=== PATIENT | female | born 1965 | race Caucasian/White ===

== ENCOUNTER 2021-10-23 09:07 | Emergency (ER) | payer OTHER, SELFPAY ==
[2021-10-23 09:10] VITALS: BP 115/68; PULSE 78; RESP 16; TEMP 36.9; O2SAT 100; BMI 22.4
--- NOTE | 2021-10-23 09:55 | ED_ITS ---
HPI - Dental/Oral General Chief complaint: Dental/Oral Stated complaint: dental issue Time Seen by Provider: 10/23/21 09:14 Source: patient Mode of arrival: ambulatory Limitations: no limitations History of Present Illness HPI Narrative: 56-year-old female with a history of multiple medication allergies here with complaints of dental pain and swelling since evening. Patient tells me that she has had some crowns that were not applied correctly several years ago and she is working on trying to get them replaced. On night 1 of her crowns fell off on her left lower to and since then she has had pain and swelling to the tooth. She plans on calling her dentist tomorrow. She is here today as she is concerned that the site might be infected and she may need some antibiotics. She is concerned that she has multiple antibiotic allergies and is unclear which medication she can take. She denies any fevers, chills, nasal congestion or rhinorrhea, sore throat or ear pain. Related Data Home Medications Medication Instructions Recorded Confirmed vilazodone 40 mg tablet (Viibryd) 40 mg PO DAILY 12/06/20 02/16/21 acetaminophen 650 mg mg PO 03/04/21 tablet,extended release ascorbic acid (vitamin C) 1,000 mg 500 mg PO DAILY 03/04/21 03/04/21 tablet (Vitamin C) cholecalciferol (vitamin D3) 50 50 mcg PO DAILY 03/04/21 03/04/21 mcg (2,000 unit) tablet (Vitamin D3) docosahexaenoic acid 300 mg capsule mg PO 03/04/21 03/04/21 Previous Rx's Medication Instructions Recorded spironolactone 100 mg tablet 100 mg PO DAILY #30 tab 12/06/20 topiramate 100 mg tablet 100 mg PO BEDTIME #30 tab 12/06/20 Lyrica 225 mg capsule (pregabalin) 225 mg PO BID 30 Days #60 cap NS 05/18/21 albuterol sulfate 90 mcg/actuation 2 puff INHALATION Q4-6H PRN 30 05/18/21 aerosol inhaler (Ventolin HFA) Days #8.5 g topiramate 200 mg tablet 200 mg PO BID #180 tab 06/07/21 lansoprazole 30 mg capsule,delayed 30 mg PO BID #90 cap 07/06/21 release nitroglycerin 0.3 mg sublingual 0.3 mg SUBLINGUAL Q5M PRN 30 Days 09/13/21 tablet #30 tab oxycodone 5 mg tablet 5 mg PO Q8H PRN 30 Days #90 tab 10/06/21 ibuprofen 600 mg tablet 600 mg PO Q8H PRN #30 tab 10/23/21 Allergies Allergy/AdvReac Type Severity Reaction Status Date / Time aluminum [Drysol] Allergy Unknown Unknown Verified 05/18/21 10:39 ciprofloxacin [Cipro] Allergy Unknown Unknown Verified 05/18/21 10:39 Clindamycin HCl Allergy Unknown Unknown Verified 05/18/21 10:39 codeine Allergy Unknown Unknown Verified 05/18/21 10:39 diazepam [Valium] Allergy Unknown Unknown Verified 05/18/21 10:39 doxycycline Allergy Unknown Unknown Verified 05/18/21 10:39 hydromorphone [Dilaudid] Allergy Unknown Unknown Verified 05/18/21 10:39 metronidazole [Flagyl] Allergy Unknown Unknown Verified 05/18/21 10:39 milnacipran [Savella] Allergy Unknown Unknown Verified 05/18/21 10:39 nitrofurantoin [Macrodantin] Allergy Unknown Unknown Verified 05/18/21 10:39 penicillin V Allergy Unknown Unknown Verified 05/18/21 10:39 Sulfa (Sulfonamide Allergy Unknown Unknown Verified 05/18/21 10:39 Antibiotics) sumatriptan [Imitrex] Allergy Unknown Unknown Verified 05/18/21 10:39 azithromycin Allergy Unknown Verified 05/18/21 10:39 gabapentin Allergy Unknown Verified 05/18/21 10:39 sulfamethoxazole Allergy Unknown Verified 05/18/21 10:39 [From Bactrim] trimethoprim [From Bactrim] Allergy Unknown Verified 05/18/21 10:39 [place] Allergy Unknown Unknown Uncoded 03/04/21 13:40 Codeine Sulfate Allergy Unknown Unknown Uncoded 03/04/21 13:40 Imitrex Allergy Unknown Unknown Uncoded 03/04/21 13:40 Penicillin Allergy Unknown Unknown Uncoded 03/04/21 13:40 Vibramycin Allergy Unknown Unknown Uncoded 03/04/21 13:40 Victyl Structures Allergy Unknown Unknown Uncoded 03/04/21 13:40 Xray Dye Allergy Unknown Unknown Uncoded 03/04/21 13:40 Review of Systems Review of Systems: Yes all other systems are reviewed and are negative Constitutional: Constitutional: Reports no additional constitutional complaints, Denies body ache(s), Denies chills, Denies fever(s), Denies headache(s) and Denies weakness Eyes: Eyes: Reports no additional eye complaints and Denies change in vision ENT: Reports system reviewed and no additional complaints, except as documented, Reports dental pain, Denies dizziness, Denies headache(s), Denies n armando congestion, Denies nasal discharge and Denies neck pain Cardiovascular: Cardiovascular: Reports no additional cardiovascular complaints, Denies chest pain, Denies leg edema and Denies dyspnea Respiratory: Respiratory: Reports no additional respiratory complaints, Denies cough and Denies dyspnea Gastrointestinal: Gastrointestinal: Reports no additional gastrointestinal complaints, Denies abdominal pain, Denies diarrhea, Denies nausea and Denies vomiting Genitourinary: Genitourinary: Reports no additional female genitourinary complaints and Denies urinary incontinence Musculoskeletal: Musculoskeletal: Reports no additional musculoskeletal complaints, Denies back pain, Denies arthralgias, Denies joint swelling, Denies neck pain, Denies numbness and Denies tingling Integumentary/Breasts: Skin/Breast: Reports system reviewed and no additional complaints, except as docu and Denies rash Neurologic: Reports system reviewed and no additional complaints, except as documented, Denies Abnormal speech present, Denies dizziness, Denies hea dache(s), Denies numbness, Denies tingling and Denies weakness PMFSH Past Medical History Attestation statement: The following information was validated with the patient. Source: old records reviewed and nursing notes reviewed Medical History Arthritis Asthma Costochondritis CPRS 1 (complex regional pain syndrome I) of upper limb Dysphagia Fibromyalgia GERD (gastroesophageal reflux disease) Multiple sclerosis Nerve damage Trapezium fracture Surgical History H/O: hysterectomy Total knee replacement status Family History Family History Father Pancreatic cancer Maternal Aunt Diabetes Breast cancer Sister Non-Hodgkin lymphoma Acute Crohn's disease Mother High cholesterol Hypertension Social History Social History Housing: Apartment Alcohol intake: former Patient Tobacco Use Status: Never used Tobacco Advance Directives: No Advance Directives Information Provided: No Current occupational status: disabled Physical Exam Vital Signs: Vital Signs: Last Vital Signs Temp 98.4 F 10/23/21 09:10 Pulse 78 10/23/21 09:10 Resp 16 10/23/21 09:10 BP 115/68 10/23/21 09:10 Pulse Ox 100 10/23/21 09:10 Body Mass Index 22.4 Const: General: cooperative, healthy appearing, comfortable and no acute distress Orientation/consciousness: patient oriented x3 Limitations: no limitations HENMT: Head: Yes normal to inspection Ears: hearing grossly normal bilaterally and TM's normal bilaterally General nose exam: Normal external nose present Face and sinus: Yes normal facial exam Mouth: Normal oral and palatal mucosa present Teeth image: 1. [place] is absent. The tooth is broken and the root is exposed. There is local erythema and tenderness with mild swelling. There is no fluctuance or induration. Crowns noted on other front teeth, most molars are absent Throat: Yes posterior oropharynx normal and Yes other ( no trismus) Eyes: General: appearance normal, both eyes and all related structures Pupils: Equal, round and reactive pupils present Neck: Neck: Yes normal visual inspection, Yes full ROM and Yes no lymphadenopathy Chest: Chest palpation & inspection: normal inspection of the chest Resp: Effort & Inspection: normal respiratory effort Cardio: Peripheral pulses: Peripheral pulses 2+ throughout GI: Inspection: Yes normal to inspection Back/Spine/Pelvis: Thoracic/Lumbar Spine: thoracic and lumbar spine normal to inspection Skin: General skin exam: no rashes or lesions noted Neuro: General: patient oriented x3 and moves all extremities Cranial nerves: Yes Equal, round and reactive pupils present Cognition (Neuro): norm al cognition Speech: No Abnormal speech present Gait exam (Neuro): Normal gait present Extrem: General: Yes normal to inspection Course Course Course Narrative: 56-year-old female here with complaints of dental pain after her crown fell off several days ago. She does have some local swelling, erythe ma and tenderness around the exposed nerve root. There is no fluctuance or induration or abscess present. The infection is mild and local to the site. The patient has multiple allergies to medications including most antibiotics. She tells me she did have a dose of IV antibiotics in the past that she was able to tolerate but she does not know the name of the medication. She also does not know most of the allergy symptoms to these antibiotics. She does know that penicillin causes her throat to close so all penicillins, cephalosporins not an option. Clindamycin causes GI upset. The case was discussed with Dr. Larry. As the patient only has common side effects to clindamycin and not a true allergy we discussed giving a dose of IV clindamycin here today and having the patient follow-up tomorrow with her dental office. This was discussed with the patient and she was agreeable with this. 1100- patient tolerated 600 mg of IV clindamycin with no issues. Plan to discharge her home to follow-up with her outpatient dental providers. Reviewed worrisome signs and symptoms and when to return to the emergency department. Comfortable discharge home. MDM - Dental/Oral Medical Records Attestation: I reviewed the patient's medical records. Lab Data Attestation: I reviewed the patient's lab results. Discharge Plan Discharge Clinical Impression: Toothache Patient Disposition: Home, Self-Care Instructions: Toothache (ED) Additional Instructions: You received 1 dose of IV clindamycin for the local infection around your tooth follow-up with your dental provider continue your home medication salt water gargles soft foods at home Prescriptions: New ibuprofen 600 mg tablet 600 mg PO Q8H PRN (Reason: pain) Qty: 30 RF: 0 No Action topiramate 200 mg tablet 200 mg PO BID Qty: 180 RF: 2 lansoprazole 30 mg capsule,delayed release(DR/EC) 30 mg PO BID Qty: 90 RF: 2 nitroglycerin 0.3 mg tablet, sublingual 0.3 mg SUBLINGUAL Q5M PRN (Reason: dysphagia) 30 Days Qty: 30 RF: 2 oxycodone 5 mg tablet 5 mg PO Q8H PRN (Reason: pain) 30 Days Qty: 90 RF: 0 ascorbic acid (vitamin C) [Vitamin C] 1,000 mg Tablet 500 mg PO DAILY RF: 0 acetaminophen [Tylenol Arthritis] 650 mg Tablet Extended Release PO RF: 0 cholecalciferol (vitamin D3) [Vitamin D3] 50 mcg (2,000 unit) Tablet 50 mcg PO DAILY RF: 0 DHA 300 mg Capsule PO RF: 0 topiramate 100 mg tablet 100 mg PO BEDTIME Qty: 30 RF: 0 spironolactone 100 mg tablet 100 mg PO DAILY Qty: 30 RF: 0 Viibryd 40 mg tablet 40 mg PO DAILY RF: 0 pregabalin [Lyrica] 225 mg capsule 225 mg PO BID 30 Days Qty: 60 RF: 3 albuterol sulfate [Ventolin HFA] 90 mcg/actuation HFA aerosol inhaler 2 puff INHALATION Q4-6H PRN (Reason: shortness of breath or wheezing) 30 Days Qty: 8.5 RF: 6
[2021-10-23] MEDS: Clindamycin Phosphate/D5W 600 MG/50 ML PIGGYBACK 100 MG IV (10:07)
--- NOTE | 2021-10-23 10:58 | PC.NURSE ---
NO NAUSEA OR VOMITING, NO NEGATIVE SIDE EFFECTS FROM ANTIBIOTICS AT THIS TIME.
== END 2021-10-23 11:13 | disposition home or self-care (01) ==
PROVIDERS: Emergency Provider Emergency Medicine; PCP Family Medicine
DX: K08.89 Other specified disorders of teeth and supporting structures (principal)
CPT/HCPCS: 96365; 99284

== ENCOUNTER 2021-10-31 10:29 | Emergency (ER) | payer OTHER, SELFPAY ==
[2021-10-31 11:24] VITALS: BP 112/66; PULSE 70; RESP 18; TEMP 36.4; O2SAT 99; BMI 22.4
--- NOTE | 2021-10-31 12:17 | ED_ITS ---
HPI - Dental/Oral General Chief complaint: Dental/Oral Stated complaint: Dental issue-antibiotic needs to be administered Time Seen by Provider: 10/31/21 12:16 Source: patient Mode of arrival: ambulatory Limitations: no limitations History of Present Illness HPI Narrative: recent crown fell off and patient with increased pain. Patient currently on IV abx for clindamycin. Patient here for IV abx dose because she states she cant take oral abx. MD Complaint: tooth pain Onset (ago): week(s) Duration: constant Severity: moderate Context: history of dental caries Related Data Home Medications Medication Instructions Recorded Confirmed vilazodone 40 mg tablet (Viibryd) 40 mg PO DAILY 12/06/20 02/16/21 acetaminophen 650 mg mg PO 03/04/21 tablet,extended release ascorbic acid (vitamin C) 1,000 mg 500 mg PO DAILY 03/04/21 03/04/21 tablet (Vitamin C) cholecalciferol (vitamin D3) 50 50 mcg PO DAILY 03/04/21 03/04/21 mcg (2,000 unit) tablet (Vitamin D3) docosahexaenoic acid 300 mg capsule mg PO 03/04/21 03/04/21 Previous Rx's Medication Instructions Recorded spironolactone 100 mg tablet 100 mg PO DAILY #30 tab 12/06/20 topiramate 100 mg tablet 100 mg PO BEDTIME #30 tab 12/06/20 Lyrica 225 mg capsule (pregabalin) 225 mg PO BID 30 Days #60 cap NS 05/18/21 albuterol sulfate 90 mcg/actuation 2 puff INHALATION Q4-6H PRN 30 05/18/21 aerosol inhaler (Ventolin HFA) Days #8.5 g topiramate 200 mg tablet 200 mg PO BID #180 tab 06/07/21 lansoprazole 30 mg capsule,delayed 30 mg PO BID #90 cap 07/06/21 release nitroglycerin 0.3 mg sublingual 0.3 mg SUBLINGUAL Q5M PRN 30 Days 09/13/21 tablet #30 tab oxycodone 5 mg tablet 5 mg PO Q8H PRN 30 Days #90 tab 10/06/21 ibuprofen 600 mg tablet 600 mg PO Q8H PRN #30 tab 10/23/21 Allergies Allergy/AdvReac Type Severity Reaction Status Date / Time aluminum [Drysol] Allergy Unknown Unknown Verified 05/18/21 10:39 ciprofloxacin [Cipro] Allergy Unknown Unknown Verified 05/18/21 10:39 Clindamycin HCl Allergy Unknown Unknown Verified 05/18/21 10:39 codeine Allergy Unknown Unknown Verified 05/18/21 10:39 diazepam [Valium] Allergy Unknown Unknown Verified 05/18/21 10:39 doxycycline Allergy Unknown Unknown Verified 05/18/21 10:39 hydromorphone [Dilaudid] Allergy Unknown Unknown Verified 05/18/21 10:39 metronidazole [Flagyl] Allergy Unknown Unknown Verified 05/18/21 10:39 milnacipran [Savella] Allergy Unknown Unknown Verified 05/18/21 10:39 nitrofurantoin [Macrodantin] Allergy Unknown Unknown Verified 05/18/21 10:39 penicillin V Allergy Unknown Unknown Verified 05/18/21 10:39 Sulfa (Sulfonamide Allergy Unknown Unknown Verified 05/18/21 10:39 Antibiotics) sumatriptan [Imitrex] Allergy Unknown Unknown Verified 05/18/21 10:39 azithromycin Allergy Unknown Verified 05/18/21 10:39 gabapentin Allergy Unknown Verified 05/18/21 10:39 sulfamethoxazole Allergy Unknown Verified 05/18/21 10:39 [From Bactrim] trimethoprim [From Bactrim] Allergy Unknown Verified 05/18/21 10:39 [place] Allergy Unknown Unknown Uncoded 03/04/21 13:40 Codeine Sulfate Allergy Unknown Unknown Uncoded 03/04/21 13:40 Imitrex Allergy Unknown Unknown Uncoded 03/04/21 13:40 Penicillin Allergy Unknown Unknown Uncoded 03/04/21 13:40 Vibramycin Allergy Unknown Unknown Uncoded 03/04/21 13:40 Victyl Structures Allergy Unknown Unknown Uncoded 03/04/21 13:40 Xray Dye Allergy Unknown Unknown Uncoded 03/04/21 13:40 Review of Systems Constitutional: Constitutional: Reports no additional constitutional complaints Eyes: Eyes: Reports no additional eye complaints ENT: Denies dizziness Cardiovascular: Cardiovascular: Reports no additional cardiovascular complaints Respiratory: Respiratory: Reports as per HPI Gastrointestinal: Gastrointestinal: Reports no additional gastrointestinal complaints Genitourinary: Genitourinary: Reports no additional female genitourinary complaints Musculoskeletal: Musculoskeletal: Reports no additional musculoskeletal complaints Integumentary/Breasts: Skin/Breast: Denies rash Neurologic: Reports system reviewed and no additional complaints, except as documented, Denies dizziness and Denies Sensory deficit (Neuro) Psychiatric: Psychiatric: Denies anxiety [facility] Past Medical History Medical History Arthritis Asthma Costochondritis CPRS 1 (complex regional pain syndrome I) of upper limb Dysphagia Fibromyalgia GERD (gastroesophageal reflux disease) Multiple sclerosis Nerve damage Trapezium fracture Surgical History H/O: hysterectomy Total knee replacement status Family History Family History Father Pancreatic cancer Maternal Aunt Diabetes Breast cancer Sister Non-Hodgkin lymphoma Acute Crohn's disease Mother High cholesterol Hypertension Social History Social History Housing: Apartment Alcohol intake: former Patient Tobacco Use Status: Never used Tobacco Advance Directives: No Advance Directives Information Provided: No Current occupational status: disabled Physical Exam Vital Signs: Vital Signs: Last Vital Signs Temp 97.5 F 10/31/21 11:24 Pulse 70 10/31/21 11:24 Resp 18 10/31/21 11:24 BP 112/66 10/31/21 11:24 Pulse Ox 99 10/31/21 11:24 BMI result Body Mass Index 22.4 Const: General: healthy appearing Nutritional Appearance: average body habitus Orientation/consciousness: oriented to person and patient oriented x3 Limitations: no limitations HENMT: Other: left lower premolar with decay to gum line, severe multiple areas of periodontal disease Head: Yes normal to inspection Ears: external ears normal General nose exam: Normal external nose present Throat: Yes posterior oropharynx normal Eyes: General: appearance normal, both eyes and all related structures Neck: Other: supple Neck: Yes normal visual inspection Chest: Chest palpation & inspection: normal inspection of the chest Resp: Auscultation: clear to auscultation bilaterally Cardio: Jugular venous distension: no JVD Rate: regular rate Rhythm: regular rhythm Heart sounds: S1 normal heart sound present and S2 normal heart sound present GI: Inspection: Yes normal to inspection Palpation (GI): Soft to palpation, nontender and No hepatosplenomegaly present Auscultation: normal bowel sounds : General: Yes no CVA tenderness Back/Spine/Pelvis: Back: no CVA tenderness Skin: General skin exam: no rashes or lesions noted Neuro: General: oriented to person and patient oriented x3 Cranial nerves: Yes CN's II-XII intact bilaterally Motor exam (neuro): 5/5 motor strength present throughout Sensory Exam: No Sensory deficit (Neuro) Extrem: General: Yes normal to inspection Psych: Appearance: grossly normal Course Reevaluation(s) Reevaluation #1: Patient sent in by oral surgeon for one more dose of IV clindamycin before surgery tomorrow Time: 12:28 Discharge Plan Discharge Clinical Impression: Toothache, Dental caries, Fracture of tooth Patient Disposition: Home, Self-Care Instructions: Toothache (ED) Prescriptions: No Action topiramate 200 mg tablet 200 mg PO BID Qty: 180 RF: 2 lansoprazole 30 mg capsule,delayed release(DR/EC) 30 mg PO BID Qty: 90 RF: 2 nitroglycerin 0.3 mg tablet, sublingual 0.3 mg SUBLINGUAL Q5M PRN (Reason: dysphagia) 30 Days Qty: 30 RF: 2 oxycodone 5 mg tablet 5 mg PO Q8H PRN (Reason: pain) 30 Days Qty: 90 RF: 0 ascorbic acid (vitamin C) [Vitamin C] 1,000 mg Tablet 500 mg PO DAILY RF: 0 acetaminophen [Tylenol Arthritis] 650 mg Tablet Extended Release PO RF: 0 cholecalciferol (vitamin D3) [Vitamin D3] 50 mcg (2,000 unit) Tablet 50 mcg PO DAILY RF: 0 DHA 300 mg Capsule PO RF: 0 ibuprofen 600 mg tablet 600 mg PO Q8H PRN (Reason: pain) Qty: 30 RF: 0 topiramate 100 mg tablet 100 mg PO BEDTIME Qty: 30 RF: 0 spironolactone 100 mg tablet 100 mg PO DAILY Qty: 30 RF: 0 Viibryd 40 mg tablet 40 mg PO DAILY RF: 0 pregabalin [Lyrica] 225 mg capsule 225 mg PO BID 30 Days Qty: 60 RF: 3 albuterol sulfate [Ventolin HFA] 90 mcg/actuation HFA aerosol inhaler 2 puff INHALATION Q4-6H PRN (Reason: shortness of breath or wheezing) 30 Days Qty: 8.5 RF: 6 Referrals: Wiliam Jones MD [Primary Care Provider] - 2 days
[2021-10-31] MEDS: Clindamycin Phosphate/D5W 600 MG/50 ML PIGGYBACK 100 MG IV (12:48)
== END 2021-10-31 13:33 | disposition home or self-care (01) ==
PROVIDERS: Emergency Provider Emergency Medicine; PCP Family Medicine
DX: K08.89 Other specified disorders of teeth and supporting structures (principal); K02.9 Dental caries, unspecified; G35 Multiple sclerosis
CPT/HCPCS: 96365; 99284

== ENCOUNTER 2021-12-21 07:16 | Emergency (ER) | payer OTHER, SELFPAY ==
[2021-12-21 07:21] VITALS: BP 118/61; PULSE 82; RESP 16; TEMP 37.1; O2SAT 98; BMI 22.4
--- NOTE | 2021-12-21 08:09 | ED_ITS ---
HPI - Dental/Oral General Chief complaint: Dental/Oral Stated complaint: abscess Time Seen by Provider: 12/21/21 07:19 Source: patient Limitations: no limitations History of Present Illness HPI Narrative: This is a 56-year-old female has a history of extensive dental work, recently had a lot of crowns were placed, also had some teeth pulled, crowns were replaced about 5 weeks ago. The patient was due to have permanent crowned placed to replace the temporary once yesterday but the dentist canceled on her. The patient notes that she has had some pain between her to upper front teeth, greater incisors and that she has noted drainage of blood and pus. Patient says she does have an appointment to see the dentist tomorrow. Patient notes that she has allergies to multiple antibiotics and in the past has had to receive an IV antibiotic which she believes was clindamycin (though she is allergic to the oral form). The patient denies any headache or fever. She notes that pain is worse with eating. Related Data Home Medications Medication Instructions Recorded Confirmed vilazodone 40 mg tablet (Viibryd) 40 mg PO DAILY 12/06/20 02/16/21 acetaminophen 650 mg mg PO 03/04/21 tablet,extended release ascorbic acid (vitamin C) 1,000 mg 500 mg PO DAILY 03/04/21 03/04/21 tablet (Vitamin C) cholecalciferol (vitamin D3) 50 50 mcg PO DAILY 03/04/21 03/04/21 mcg (2,000 unit) tablet (Vitamin D3) docosahexaenoic acid 300 mg capsule mg PO 03/04/21 03/04/21 Previous Rx's Medication Instructions Recorded spironolactone 100 mg tablet 100 mg PO DAILY #30 tab 12/06/20 topiramate 100 mg tablet 100 mg PO BEDTIME #30 tab 12/06/20 albuterol sulfate 90 mcg/actuation 2 puff INHALATION Q4-6H PRN 30 05/18/21 aerosol inhaler (Ventolin HFA) Days #8.5 g topiramate 200 mg tablet 200 mg PO BID #180 tab 06/07/21 lansoprazole 30 mg capsule,delayed 30 mg PO BID #90 cap 07/06/21 release nitroglycerin 0.3 mg sublingual 0.3 mg SUBLINGUAL Q5M PRN 30 Days 09/13/21 tablet #30 tab ibuprofen 600 mg tablet 600 mg PO Q8H PRN #30 tab 10/23/21 Lyrica 225 mg capsule (pregabalin) 225 mg PO BID 30 Days #60 cap NS 11/07/21 oxycodone 5 mg tablet 5 mg PO Q8H PRN 30 Days #90 tab 12/01/21 food supplemt, lactose-reduced 1 ea PO BID 30 Days #86084 ml 12/09/21 (Ensure) Allergies Allergy/AdvReac Type Severity Reaction Status Date / Time aluminum [Drysol] Allergy Unknown Unknown Verified 05/18/21 10:39 ciprofloxacin [Cipro] Allergy Unknown Unknown Verified 05/18/21 10:39 Clindamycin HCl Allergy Unknown Unknown Verified 05/18/21 10:39 codeine Allergy Unknown Unknown Verified 05/18/21 10:39 diazepam [Valium] Allergy Unknown Unknown Verified 05/18/21 10:39 doxycycline Allergy Unknown Unknown Verified 05/18/21 10:39 hydromorphone [Dilaudid] Allergy Unknown Unknown Verified 05/18/21 10:39 metronidazole [Flagyl] Allergy Unknown Unknown Verified 05/18/21 10:39 milnacipran [Savella] Allergy Unknown Unknown Verified 05/18/21 10:39 nitrofurantoin Allergy Unknown Unknown Verified 05/18/21 10:39 [Macrodantin] penicillin V Allergy Unknown Unknown Verified 05/18/21 10:39 Sulfa (Sulfonamide Allergy Unknown Unknown Verified 05/18/21 10:39 Antibiotics) sumatriptan [Imitrex] Allergy Unknown Unknown Verified 05/18/21 10:39 azithromycin Allergy Unknown Verified 05/18/21 10:39 gabapentin Allergy Unknown Verified 05/18/21 10:39 sulfamethoxazole Allergy Unknown Verified 05/18/21 10:39 [From Bactrim] trimethoprim [From Allergy Unknown Verified 05/18/21 10:39 Bactrim] [place] Allergy Unknown Unknown Uncoded 03/04/21 13:40 Codeine Sulfate Allergy Unknown Unknown Uncoded 03/04/21 13:40 Imitrex Allergy Unknown Unknown Uncoded 03/04/21 13:40 Penicillin Allergy Unknown Unknown Uncoded 03/04/21 13:40 Vibramycin Allergy Unknown Unknown Uncoded 03/04/21 13:40 Victyl Structures Allergy Unknown Unknown Uncoded 03/04/21 13:40 Xray Dye Allergy Unknown Unknown Uncoded 03/04/21 13:40 Review of Systems Verdana 4l Constitutional: Verdana 4d Constitutional: Verdana 4d Verdana 4d Reports as per HPI, Denies fever(s) and Denies headache(s) Verdana 4l Eyes: Verdana 4d Verdana 4d Eyes: Verdana 4d Reports no additional eye complaints Verdana 4l ENT: Verdana 4d Denies headache(s) Verdana 4d Comments: Verdana 4d Verdana 4d Gum drainage Verdana 4d Verdana 4l Cardiovascular: Verdana 4d Cardiovascular: Verdana 4d Verdana 4d Reports no additional cardiovascular complaints Verdana 4l Respiratory: Verdana 4d Verdana 4d Respiratory: Verdana 4d Reports no additional respiratory complaints Verdana 4l Neurologic: Verdana 4d Denies headache(s) [facility] Past Medical History Medical History Arthritis Asthma Costochondritis CPRS 1 (complex regional pain syndrome I) of upper limb Dysphagia Fibromyalgia GERD (gastroesophageal reflux disease) Multiple sclerosis Nerve damage Trapezium fracture Surgical History H/O: hysterectomy Total knee replacement status Family History Family History Father Pancreatic cancer Maternal Aunt Diabetes Breast cancer Sister Non-Hodgkin lymphoma Acute Crohn's disease Mother High cholesterol Hypertension Social History Social History Housing: Apartment Alcohol intake: former Patient Tobacco Use Status: Never used Tobacco Advance Directives: No Advance Directives Information Provided: Yes Patient : No Current occupational status: disabled Physical Exam Verdana 4l Vital Signs: Verdana 4d Verdana 4d Vital Signs: Verdana 4d Verdana 4Bd Last Vital Signs Verdana 4d [employer] New 4d [employer] 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 Area the patient's pain between the upper to greater incisors, has perhaps mild erythema but no fluctuance, no drainage, no disruption of the mucosa which would suggest a place that had been draining. MDM - Dental/Oral MDM Narrative Medical decision making narrative: Patient reports drainage from the gum between her upper greater incisors. On exam the area appears normal except perhaps mild erythema at the apex of the gum between teeth. No fluctuance. Given that the patient has dental follow-up tomorrow, and given her multiple allergies to antibiotics, do not believe antibiotics are indicated. Warm rinses, Tylenol and ibuprofen are advised Discharge Plan Discharge Clinical Impression: Gum inflammation Patient Disposition: Home, Self-Care Instructions: Periodontal Disease (DC) Additional Instructions: Follow-up with a dentist tomorrow scheduled. Use acetaminophen or ibuprofen for pain. Rinse the sore area of her mouth with warm water for 10 minutes every 3-4 hours while awake. You can gently use her fingers to try to express out any pus, so I did not see any fluctuant or pus filled area at this time. Prescriptions: No Action topiramate 200 mg tablet 200 mg PO BID Qty: 180 2RF lansoprazole 30 mg capsule,delayed release(DR/EC) 30 mg PO BID Qty: 90 2RF nitroglycerin 0.3 mg tablet, sublingual 0.3 mg SUBLINGUAL Q5M PRN (Reason: dysphagia) 30 Days Qty: 30 2RF pregabalin [Lyrica] 225 mg capsule 225 mg PO BID 30 Days Qty: 60 3RF oxycodone 5 mg tablet 5 mg PO Q8H PRN (Reason: pain) 30 Days Qty: 90 0RF Rx Instructions: [employer] verified. Partial refill upon request. Ensure Liquid 1 ea PO BID 30 Days Qty: [id number] 3RF Rx Instructions: Original [place] ascorbic acid (vitamin C) [Vitamin C] 1,000 mg Tablet 500 mg PO DAILY 0RF acetaminophen [Tylenol Arthritis] 650 mg Tablet Extended Release PO 0RF cholecalciferol (vitamin D3) [Vitamin D3] 50 mcg (2,000 unit) Tablet 50 mcg PO DAILY 0RF DHA 300 mg Capsule PO 0RF ibuprofen 600 mg tablet 600 mg PO Q8H PRN (Reason: pain) Qty: 30 0RF topiramate 100 mg tablet 100 mg PO BEDTIME Qty: 30 0RF spironolactone 100 mg tablet 100 mg PO DAILY Qty: 30 0RF Viibryd 40 mg tablet 40 mg PO DAILY 0RF Rx Instructions: must administer with a meal/food albuterol sulfate [Ventolin HFA] 90 mcg/actuation HFA aerosol inhaler 2 puff INHALATION Q4-6H PRN (Reason: shortness of breath or wheezing) 30 Days Qty: 8.5 6RF
--- NOTE | 2021-12-21 08:28 | PC.NURSE ---
PT EVALUATED BY PROVIDER. PT AWAKE, ALERT AND ORIENTED X 3. SKIN WARM AND DRY. RESP UNLABORED. DENIES N/V. AIRWAY PATENT. SPEAKING IN FULL SENTENCES. MANAGING SECRETIONS. NO PUS NOTED ON GUMLINE AT THIS TIME. PLAN IS FOR DC AND F/U WITH DENTIST. PT AGREEABLE TO PLAN
== END 2021-12-21 08:30 | disposition home or self-care (01) ==
PROVIDERS: Emergency Provider Emergency Medicine; PCP Family Medicine
DX: K05.10 Chronic gingivitis, plaque induced (principal)
CPT/HCPCS: 99283

== ENCOUNTER → 2022-01-26 09:27 | Outpatient (BNVA) | payer OTHER, SELFPAY | PROVIDERS: PCP Family Medicine; Visit Provider Internal Medicine Endocrinology, Diabetes & Metabolism | DX: M81.0 Age-related osteoporosis without current pathological fracture (principal) | CPT/HCPCS: 99202 ==

== ENCOUNTER 2022-06-26 07:28 | Outpatient (REF) | payer OTHER, SELFPAY ==
[2022-06-26 11:22] LABS: MANUAL DIFF FLAG NO
[2022-06-26 11:33] LABS: Basophils Percent Auto 0.4 % (0-2); Eosinophils Absolute Auto 0.1 X10*3/uL (0.0-0.4); Eosinophils Percent Auto 0.9 % (0-4); Hematocrit 41.2 % (37.0-47.0); Hemoglobin 13.1 g/dl (12.0-16.0); Imm Gran Abs Auto 0.02 X10*3/uL (0.00-0.03); Imm Gran Pct Auto 0.4 % (0.0-0.4); Lymphocytes Percent Auto 35.1 % (20-40); Mean Corpuscular HGB Conc 31.8 g/dl (31.0-35.0); Mean Corpuscular Hemoglobin 29.9 pg (27.0-33.0); Mean Corpuscular Volume 94.1 fL (80.0-98.0); Mean Platelet Volume 11.9 fL (9.4-12.3); Monocytes Absolute Auto 0.5 X10*3/uL (0.1-1.2); Monocytes Percent Auto 8.2 % (2-11); Neutrophils Absolute Auto 3.1 x10*3/uL (2.0-8.3); Platelet Count 182 X10*3/uL (160-400); Red Blood Count 4.38 X10*6/uL (4.20-5.50); Red Cell Distribution Width 13.2 % (11.0-16.0); White Blood Count 5.6 X10*3/uL (4.8-10.8)
[2022-06-26 11:57] LABS: Alanine Aminotransferase 23 U/L (0-31); Albumin Level 4.4 g/dL (3.5-5.0); Alkaline Phosphatase 55 U/L (39-117); Anion Gap 15 (12-20); Aspartate Amino Transferase 23 U/L (5-31); Bilirubin Total 0.5 mg/dL (0.0-1.0); Blood Urea Nitrogen 12 mg/dL (9-16); Carbon Dioxide 28 mmol/L (22-29); Chloride 104 mmol/L (96-108); Cholesterol 237 mg/dL; Estimated Glomerular Filt Rate > 60; Glucose Fasting 102 mg/dL (60-99); HDL Cholesterol 75 mg/dL; LDL Cholesterol Calculated 147 mg/dl; Potassium 4.3 mmol/L (3.3-5.1); Sodium 143 mmol/L (135-145); Total Protein 6.7 g/dL (6.5-8.0); Triglycerides 75 mg/dL
[2022-06-26 12:05] LABS: TSH reflex Free T4 1.25 uIU/mL (0.32-4.0)
== END 2022-06-26 07:29 | disposition home or self-care (01) ==
LOC: HO.WFDLDS 07:28
PROVIDERS: Visit Provider Family Medicine
DX: Z00.00 Encounter for general adult medical examination without abnormal findings (principal)
CPT/HCPCS: 36415; 80053; 80061; 84443; 85025

== ENCOUNTER 2022-09-20 12:49 | Outpatient (REF) | payer OTHER, SELFPAY ==
[2022-09-20 14:22] LABS: Appearance Urine Clear; Color Urine Yellow; Glucose Urine UA Negative (Negative); Leukocyte Esterase Urine Large (3+) (Negative); Nitrite Urine Negative (Negative); UMIC TRIGGER UA YES; Urine Blood Negative (Negative); Urine Ketones Negative (Negative); Urine Protein Negative (Neg-Trace)
[2022-09-20 14:33] LABS: Bacteria Urine Trace (None Seen); Hyaline Casts Urine 0-2 /LPF (0-2); RBC Urine 0-2 /HPF (0-2); WBC Urine 21-50 /HPF (0-5)
== END 2022-09-20 12:50 | disposition home or self-care (01) ==
LOC: HO.WFDLNP 12:49
PROVIDERS: Visit Provider Family Medicine
DX: Z00.00 Encounter for general adult medical examination without abnormal findings (principal); R73.01 Impaired fasting glucose
CPT/HCPCS: 81001; 81003

== ENCOUNTER → 2022-10-11 12:30 | Outpatient (BNVA) | payer OTHER, SELFPAY | PROVIDERS: PCP Family Medicine; Visit Provider Dietitian, Registered | DX: R63.5 Abnormal weight gain (principal); R73.01 Impaired fasting glucose; E78.00 Pure hypercholesterolemia, unspecified; Z71.3 Dietary counseling and surveillance | CPT/HCPCS: 97802 ==

== ENCOUNTER 2022-10-18 06:51 | Emergency (ER) | payer OTHER, SELFPAY ==
[2022-10-18 06:52] VITALS: BP 111/59; PULSE 79; RESP 18; TEMP 36.1; O2SAT 99; BMI 25.0
--- NOTE | 2022-10-18 07:06 | ED_ITS ---
HPI - Dental/Oral General Chief complaint: Dental/Oral Stated complaint: sent by dental office, possible infection Time Seen by Provider: 10/18/22 07:04 Source: patient Mode of arrival: ambulatory Limitations: no limitations History of Present Illness HPI Narrative: Patient here from dentist for IV clindamycin because she can not tolerate oral antibiotics. Xray showed infection down her lower jaw. She has a long history of dental problems. She is to go to [facility] – [place] after IV abx. Onset (ago): month(s) Duration: worsening Severity: mild Relieving factors: nothing Exacerbating factors: nothing Context: other (long history of dental infection) Treatment prior to arrival: none Related Data Home Medications Medication Instructions Recorded Confirmed vilazodone 40 mg tablet (Viibryd) 40 mg PO DAILY 12/06/20 05/16/22 cholecalciferol (vitamin D3) 50 50 mcg PO DAILY 03/04/21 05/16/22 mcg (2,000 unit) tablet (Vitamin D3) docosahexaenoic acid 300 mg capsule mg PO 03/04/21 05/16/22 acetaminophen 650 mg 650 mg PO ONCE PRN 01/26/22 05/16/22 tablet,extended release ascorbic acid (vitamin C) 1,000 mg 1 g PO DAILY 01/26/22 05/16/22 tablet (Vitamin C) Previous Rx's Medication Instructions Recorded albuterol sulfate 90 mcg/actuation 2 puff inhalation Q4-6H PRN 05/18/21 aerosol inhaler (Ventolin HFA) shortness of breath or wheezing 30 days #8.5 grams nitroglycerin 0.3 mg sublingual 0.3 mg sublingual Q5M PRN 09/13/21 tablet dysphagia 30 days #30 tabs lansoprazole 30 mg capsule,delayed 30 mg PO BID 90 days #180 caps 01/05/22 release naloxone 4 mg/actuation nasal 4 mg intranasal Q2M PRN opioid 04/25/22 spray (Narcan) overdose #2 ea food supplemt, lactose-reduced 1 ea PO BID 30 days #14,220 mL 05/16/22 (Ensure Original oral liquid) ibuprofen 800 mg tablet 800 mg PO Q8H PRN pain 14 days #42 05/16/22 tabs spironolactone 100 mg tablet 100 mg PO DAILY 120 days #120 tabs 05/16/22 Lyrica 225 mg capsule (pregabalin) 225 mg PO BID 30 days #60 caps 07/18/22 oxycodone 5 mg tablet 5 mg PO Q8H PRN pain 30 days #90 10/02/22 tabs Allergies Allergy/AdvReac Type Severity Reaction Status Date / Time aluminum [Drysol] Allergy Unknown Unknown Verified 10/18/22 06:58 ciprofloxacin [Cipro] Allergy Unknown Unknown Verified 10/18/22 06:58 Clindamycin HCl Allergy Unknown Unknown Verified 10/18/22 06:58 codeine Allergy Unknown Unknown Verified 10/18/22 06:58 diazepam [Valium] Allergy Unknown Unknown Verified 10/18/22 06:58 doxycycline Allergy Unknown Unknown Verified 10/18/22 06:58 hydromorphone [Dilaudid] Allergy Unknown Unknown Verified 10/18/22 06:58 metronidazole [Flagyl] Allergy Unknown Unknown Verified 10/18/22 06:58 milnacipran [Savella] Allergy Unknown Unknown Verified 10/18/22 06:58 nitrofurantoin [Macrodantin] Allergy Unknown Unknown Verified 10/18/22 06:58 penicillin V Allergy Unknown Unknown Verified 10/18/22 06:58 Sulfa (Sulfonamide Allergy Unknown Unknown Verified 10/18/22 06:58 Antibiotics) sumatriptan [Imitrex] Allergy Unknown Unknown Verified 10/18/22 06:58 azithromycin Allergy Unknown Verified 10/18/22 06:58 gabapentin Allergy Unknown Verified 10/18/22 06:58 sulfamethoxazole Allergy Unknown Verified 10/18/22 06:58 [From Bactrim] trimethoprim [From Bactrim] Allergy Unknown Verified 10/18/22 06:58 [place] Allergy Unknown Unknown Uncoded 07/17/22 11:06 Codeine Sulfate Allergy Unknown Unknown Uncoded 07/17/22 11:06 Imitrex Allergy Unknown Unknown Uncoded 07/17/22 11:06 Penicillin Allergy Unknown Unknown Uncoded 07/17/22 11:06 Vibramycin Allergy Unknown Unknown Uncoded 07/17/22 11:06 Victyl Structures Allergy Unknown Unknown Uncoded 07/17/22 11:06 Xray Dye Allergy Unknown Unknown Uncoded 07/17/22 11:06 Review of Systems Review of Systems: Yes all other systems are reviewed and are negative Neurologic: Denies Sensory deficit (Neuro) PMFSH Past Medical History Medical History Arthritis Asthma Costochondritis CPRS 1 (complex regional pain syndrome I) of upper limb Dysphagia Fibromyalgia GERD (gastroesophageal reflux disease) Multiple sclerosis Nerve damage Trapezium fracture Surgical History H/O: hysterectomy History of surgery Hx of tooth extraction Total knee replacement status Family History Family History Father Pancreatic cancer Maternal Aunt Diabetes Breast cancer Sister Non-Hodgkin lymphoma Acute Crohn's disease Mother High cholesterol Hypertension Social History Social History Housing: Apartment Alcohol intake: former Patient Tobacco Use Status: Never used Tobacco e-Cigarette/Vaping Use: Never Used Second Hand Smoke Exposure: No service: No Current occupational status: disabled Current occupational exposures/hazards: No Cognitive needs: No Hearing needs: No Vision needs: No Physical Exam Vital Signs: Vital Signs: Last Vital Signs Temp 97 F 10/18/22 06:52 Pulse 79 10/18/22 06:52 Resp 18 10/18/22 06:52 BP 111/59 L 10/18/22 06:52 Pulse Ox 99 10/18/22 06:52 O2 Del Method 10/18/22 06:52 BMI result Body Mass Index 25.0 Const: General: healthy appearing Nutritional Appearance: average body habi tus Orientation/consciousness: oriented to person and patient oriented x3 Limitations: no limitations HEENT: Other: Poor dentition with 4 teeth remaining lower jaw, no visible evidence of infection, no neck swelling. Head: Yes normal to inspection Ears: external ears normal General nose exam: Normal external nose present Mouth: Normal oral and palatal mucosa present and oropharynx normal Throat: Yes posterior oropharynx normal Eyes: General: appearance normal, both eyes and all related structures Neck: Other: supple Neck: Yes normal visual inspection Chest: Chest palpation & inspection: normal inspection of the chest Resp: Auscultation: clear to auscultation bilaterally Cardio: Jugular venous distension: no JVD Rate: regular rate Rhythm: regular rhythm Heart sounds: S1 normal heart sound present and S2 normal heart sound present GI: Inspection: Yes normal to inspection Palpation (GI): Soft to palpation, nontender and No hepatosplenomegaly present Auscultation: normal bowel sounds : General: Yes no CVA tenderness Back/Spine/Pelvis: Back: no CVA tenderness Skin: General skin exam: no rashes or lesions noted Neuro: General: oriented to person and patient oriented x3 Cranial nerves: Yes CN's II-XII intact bilaterally Motor exam (neuro): 5/5 motor strength present throughout Sensory Exam: No Sensory deficit (Neuro) Extrem: General: Yes normal to inspection Psych: Appearance: grossly normal Course Reevaluation(s) Reevaluation #1: Patient to receive IV clindamycin and dc to [facility] Time: 07:19 Discharge Plan Discharge Clinical Impression: Dental infection Patient Disposition: Home, Self-Care Additional Instructions: Follow up with your [facility] facial surgeon today Prescriptions: No Action nitroglycerin 0.3 mg tablet, sublingual 0.3 mg SUBLINGUAL Q5M PRN (Reason: dysphagia) 30 Days Qty: 30 2RF naloxone [Narcan] 4 mg/actuation spray,non-aerosol 4 mg intranasal Q2M PRN (Reason: opioid overdose) Qty: 2 2RF Rx Instructions: spray 1 dose into ONE nostril; alternate nostrils w each dose until help arrives pregabalin [Lyrica] 225 mg capsule 225 mg PO BID 30 Days Qty: 60 3RF Rx Instructions: Brand Name only, No Substitutions, Dispense as Written. Has tried and Does not tolerate Generic. oxycodone 5 mg tablet 5 mg PO Q8H PRN (Reason: pain) 30 Days Qty: 90 0RF Rx Instructions: MassPat verified. Partial refill upon request. cholecalciferol (vitamin D3) [Vitamin D3] 50 mcg (2,000 unit) Tablet 50 mcg PO DAILY DHA 300 mg Capsule PO acetaminophen 650 mg tablet extended release 650 mg PO ONCE PRN ascorbic acid (vitamin C) [Vitamin C] 1,000 mg tablet 1 g PO DAILY Viibryd 40 mg tablet 40 mg PO DAILY Rx Instructions: must administer with a meal/food albuterol sulfate [Ventolin HFA] 90 mcg/actuation HFA aerosol inhaler 2 puff INHALATION Q4-6H PRN (Reason: shortness of breath or wheezing) 30 Days Qty: 8.5 6RF lansoprazole 30 mg capsule,delayed release(DR/EC) 30 mg PO BID 90 Days Qty: 180 3RF spironolactone 100 mg tablet 100 mg PO DAILY 120 Days Qty: 120 2RF ibuprofen 800 mg tablet 800 mg PO Q8H PRN (Reason: pain) 14 Days Qty: 42 0RF Ensure Original Liquid 1 ea PO BID 30 Days Qty: 15604 6RF Rx Instructions: White
[2022-10-18] MEDS: Clindamycin Phosphate/D5W 600 MG/50 ML PIGGYBACK 100 MG IV (07:23)
[2022-10-18 07:33] VITALS: PULSE 73; O2SAT 100
--- NOTE | 2022-10-18 07:33 | PC.NURSE ---
patient IV antibiotic started. after 4 minutes of running patient called for RN. states she feels like shes melting and feels like its hard for her to take a deep breath. patient o2 sat 100%, no apparent respiratory distress. Patient told RN she has had this antibiotic in past with no reactions. antibiotic paused and spoke with Dr Dan. Ok to keep infusion running. patient will be kept with o2 sensor on. will monitor.
[2022-10-18 07:37] VITALS: BP 111/61; PULSE 68; RESP 14; TEMP 36.6; O2SAT 99
== END 2022-10-18 07:58 | disposition home or self-care (01) ==
PROVIDERS: Emergency Provider Emergency Medicine; PCP Family Medicine
DX: K04.7 Periapical abscess without sinus (principal)
CPT/HCPCS: 96374; 99284

== ENCOUNTER 2023-01-19 10:03 | Outpatient (REF) | payer OTHER, SELFPAY ==
[2023-01-19 12:56] LABS: Influenza A PCR NEGATIVE (Negative); Influenza B PCR NEGATIVE (Negative); Resp Syncy Virus RNA Qual PCR NEGATIVE (Negative); SARS COV2 PCR INHOUSE NEGATIVE (Negative)
== END 2023-01-19 10:04 | disposition home or self-care (01) ==
LOC: HO.LAB 10:03
PROVIDERS: Visit Provider Nurse Practitioner Family
DX: R09.89 Other specified symptoms and signs involving the circulatory and respiratory systems (principal); Z20.822 Contact with and (suspected) exposure to COVID-19
CPT/HCPCS: 0241U

== ENCOUNTER 2023-02-28 10:05 | Emergency (ER) | payer OTHER, SELFPAY ==
--- NOTE | ~2023-02-28 | XR_ITS ---
EXAMINATION: XR KNEE, LEFT CLINICAL INFORMATION: Left knee swelling. Rule out fracture. COMPARISON: None available. TECHNIQUE: Four views of the left knee. FINDINGS: Patient status post left total knee arthroplasty. No acute fracture or dislocation is evident. Hardware appears intact. No significant knee effusion is seen. XR/XR knee LT 3V IMPRESSION: No significant abnormality of the left knee status post left knee arthroplasty. No acute fracture identified.
--- NOTE | ~2023-02-28 | US_ITS ---
EXAMINATION: US VENOUS ULTRASOUND WITH DOPPLER LOWER EXTREMITY, LEFT CLINICAL INFORMATION: Left knee swelling COMPARISON: None available. TECHNIQUE: Ultrasound of the deep veins is performed from the hip to the calf with compression sonography and color and pulse Doppler assessment. Spectral analysis with color-flow imaging is performed. FINDINGS: There is normal venous compression and respiratory variation and augmented flow. The visualized common femoral vein, superficial femoral vein, profunda femoral vein, popliteal vein, and the trifurcation region shows no evidence of deep venous thrombosis. There is no significant popliteal fossa cyst. A small amount of fluid is present superior to the patella which may represent a small joint effusion. If the patient's symptoms persist, followup ultrasound in 5 days 7 days might be of value to exclude proximal propagation from a non-visualized calf vein. US/US venous duplex LE IMPRESSION: No DVT demonstrated in the left lower extremity.
[2023-02-28 10:15] VITALS: BP 137/78; PULSE 75; RESP 18; TEMP 37.1; O2SAT 98; BMI 25.4
--- NOTE | 2023-02-28 10:51 | ED_ITS ---
HPI - Extremity Problem General Chief complaint: Extremity Injury, Upper Stated complaint: L knee drainage ? Time Seen by Provider: 02/28/23 10:51 Source: patient and family (Mother) Mode of arrival: ambulatory Limitations: no limitations History of Present Illness HPI Narrative: 57-year-old female who presents emergency department for evaluation of left knee pain and swelling. The patient has a left knee total replacement done in 2016 at [facility]. The patient states that on Sunday, 6 days prior to evaluation, she developed pain and swelling in left knee. She had no injury. She states that last night the knee became discolored and more swollen. She states that it is painful to walk on her knee. She was concerned about the discoloration so she came to the emergency department for evaluation. She denied fever, chills, cough, chest pain, shortness of breath, nausea, vomiting, diarrhea. She states she has allergies and she does have nasal congestion. She states that she has chronic muscle and joint pain secondary to her fibromyalgia and her MS. Related Data Home Medications Medication Instructions Recorded Confirmed vilazodone 40 mg tablet (Viibryd) 40 mg PO DAILY 12/06/20 05/16/22 cholecalciferol (vitamin D3) 50 50 mcg PO DAILY 03/04/21 05/16/22 mcg (2,000 unit) tablet (Vitamin D3) docosahexaenoic acid 300 mg capsule mg PO 03/04/21 05/16/22 acetaminophen 650 mg 650 mg PO ONCE PRN 01/26/22 05/16/22 tablet,extended release ascorbic acid (vitamin C) 1,000 mg 1 g PO DAILY 01/26/22 05/16/22 tablet (Vitamin C) Previous Rx's Medication Instructions Recorded albuterol sulfate 90 mcg/actuation 2 puff inhalation Q4-6H PRN 05/18/21 aerosol inhaler (Ventolin HFA) shortness of breath or wheezing 30 days #8.5 grams nitroglycerin 0.3 mg sublingual 0.3 mg sublingual Q5M PRN 09/13/21 tablet dysphagia 30 days #30 tabs spironolactone 100 mg tablet 100 mg PO DAILY 120 days #120 tabs 05/16/22 Lyrica 225 mg capsule (pregabalin) 225 mg PO BID 30 days #60 caps 11/15/22 epinephrine 0.3 mg/0.3 mL 0.3 mg (0.3 mL) IM ONCE PRN 11/20/22 injection, auto-injector (EpiPen anaphylaxis 30 days #2 ea 2-Joaquín) cetirizine 10 mg tablet (Zyrtec) 10 mg PO DAILY 30 days #30 tabs 01/19/23 fluticasone propionate 50 1 spray intranasal Q12H 30 days 01/19/23 mcg/actuation nasal #16 grams spray,suspension (Flonase Allergy Relief) ibuprofen 800 mg tablet 800 mg PO Q8H PRN pain 14 days #42 01/19/23 tabs lansoprazole 30 mg capsule,delayed 30 mg PO BID 90 days #180 caps 02/03/23 release oxycodone 5 mg tablet 5 mg PO Q8H PRN pain 30 days #90 02/21/23 tabs Allergies Allergy/AdvReac Type Severity Reaction Status Date / Time aluminum [Drysol] Allergy Unknown Unknown Verified 02/28/23 10:14 ciprofloxacin [Cipro] Allergy Unknown Unknown Verified 02/28/23 10:14 Clindamycin HCl Allergy Unknown Unknown Verified 02/28/23 10:14 codeine Allergy Unknown Unknown Verified 02/28/23 10:14 diazepam [Valium] Allergy Unknown Unknown Verified 02/28/23 10:14 doxycycline Allergy Unknown Unknown Verified 02/28/23 10:14 hydromorphone [Dilaudid] Allergy Unknown Unknown Verified 02/28/23 10:14 metronidazole [Flagyl] Allergy Unknown Unknown Verified 02/28/23 10:14 milnacipran [Savella] Allergy Unknown Unknown Verified 02/28/23 10:15 nitrofurantoin [Macrodantin] Allergy Unknown Unknown Verified 02/28/23 10:15 penicillin V Allergy Unknown Unknown Verified 02/28/23 10:15 Sulfa (Sulfonamide Allergy Unknown Unknown Verified 02/28/23 10:15 Antibiotics) sumatriptan [Imitrex] Allergy Unknown Unknown Verified 02/28/23 10:15 azithromycin Allergy Unknown Verified 02/28/23 10:15 gabapentin Allergy Unknown Verified 02/28/23 10:15 sulfamethoxazole Allergy Unknown Verified 02/28/23 10:15 [From Bactrim] trimethoprim [From Bactrim] Allergy Unknown Verified 02/28/23 10:15 [place] Allergy Unknown Unknown Uncoded 01/19/23 09:47 Codeine Sulfate Allergy Unknown Unknown Uncoded 01/19/23 09:47 Imitrex Allergy Unknown Unknown Uncoded 01/19/23 09:47 Penicillin Allergy Unknown Unknown Uncoded 01/19/23 09:47 Vibramycin Allergy Unknown Unknown Uncoded 01/19/23 09:47 Victyl Structures Allergy Unknown Unknown Uncoded 01/19/23 09:47 Xray Dye Allergy Unknown Unknown Uncoded 01/19/23 09:47 Review of Systems Review of Systems: Yes all other systems are reviewed and are negative [facility] Past Medical History Medical History Arthritis Asthma Costochondritis CPRS 1 (complex regional pain syndrome I) of upper limb Dysphagia Fibromyalgia GERD (gastroesophageal reflux disease) Multiple sclerosis Nerve damage Trapezium fracture Surgical History H/O: hysterectomy History of surgery Hx of tooth extraction Total knee replacement status Family History Family History Father Pancreatic cancer Maternal Aunt Diabetes Breast cancer Sister Non-Hodgkin lymphoma Acute Crohn's disease Mother High cholesterol Hypertension Social History Social History Housing: Apartment Alcohol intake: former Patient Tobacco Use Status: Never used Tobacco e-Cigarette/Vaping Use: Never Used Second Hand Smoke Exposure: No Advance Directives: No service: No Current occupational status: disabled Current occupational exposures/hazards: No Cognitive needs: No Hearing needs: No Vision needs: No Physical Exam Vital Signs: Vital Signs: Last Vital Signs Temp 98.9 F 02/28/23 10:55 Pulse 73 02/28/23 10:55 Resp 18 02/28/23 10:55 BP 129/78 02/28/23 10:55 Pulse Ox 97 02/28/23 10:55 O2 Del Method Room Air 02/28/23 10:55 BMI result Body Mass Index 25.4 Vital signs stable General: Awake, alert, female patient, very pleasant cooperative, no distress, answers all questions appropriately Extremities: The patient does have a vertical surgical scar, well-healed, there is no joint effusion, no discoloration or erythema. No increased warmth. The patient's left and right leg appear to be symmetric in size. Patient does have some discomfort with flexion of the left knee but has full flexion extension. Her extremities are neurovascular intact. Medical Decision Making Medical Decision Making [facility] Narrative: 57-year-old female who presents emergency department for evaluation of pain, swelling discoloration of her left knee, she had a total knee replacement 2016 of the left knee. The patient had no significant systemic symptoms. Her examination was unremarkable. I did order laboratory evaluation includes CBC, CMP, ESR, CRP, lactic acid, blood cultures x2. I will obtain a left knee x-ray and duplex ultrasound of the left knee to rule out DVT 1329: My interpretation patient's laboratory evaluation is as follows: WBC was normal ESR and CRP were normal. Duplex ultrasound of the left lower extremity revealed no DVT and no Valles cyst. X-ray of the left knee revealed no significant abnormalities to explain her symptoms. Patient's symptoms are most likely secondary to a sprain of her patella tendon or quadriceps muscle use. Patient was advised to continue taking ibup rofen, rest and use ice and elevation as needed. She was advised follow-up with PCP for re-evaluation. Differential Diagnosis Differential diagnosis includes was not limited to DVT, infection, cellulitis, nonspecific inflammatory arthritis, fracture Lab Data [facility] Lab Attestation statement: I reviewed the patient's lab results. See [facility] 02/28/23 12:27 02/28/23 12:27 Labs: Lab Results 02/28/23 02/28/23 02/28/23 Range/Units 12:27 12:27 12:27 WBC 5.9 (4.8-10.8) X10*3/uL RBC 4.71 (4.20-5.50) X10*6/uL Hgb 14.0 (12.0-16.0) g/dl Hct 43.2 (37.0-47.0) % MCV 91.7 (80.0-98.0) fL MCH 29.7 (27.0-33.0) pg MCHC 32.4 (31.0-35.0) g/dl RDW 13.3 (11.0-16.0) % Plt Count 193 (160-400) X10*3/uL MPV 10.4 (9.4-12.3) fL Immature Gran % (Auto) 0.2 (0.0-0.4) % Neut % (Auto) 58.9 (45-73) % Lymph % (Auto) 32.5 (20-40) % Drew % (Auto) 7.4 (2-11) % Eos % (Auto) 0.7 (0-4) % Baso % (Auto) 0.3 (0-2) % Lymph # (Auto) 1.9 (1.2-4.9) X10*3/uL Drew # (Auto) 0.4 (0.1-1.2) X10*3/uL Eos # (Auto) 0.0 (0.0-0.4) X10*3/uL Baso # (Auto) 0.0 (0.0-0.2) X10*3/uL Abs Immat Gran (auto) 0.01 (0.00-0.03) X10*3/uL Absolute Neuts (auto) 3.5 (2.0-8.3) x10*3/uL Absolute Nucleated RBC 0.000 (0.0-0.012) X10*3/uL Nucleated RBC % (auto) 0.0 (0.0-0.2) /100WBC PT 10.3 (10.0-13.1) SEC INR 0.9 (0.9-1.1) APTT 32.7 (26.0-36.4) SEC Sodium 143 (135-145) mmol/L Potassium 4.3 (3.3-5.1) mmol/L Chloride 106 (96-108) mmol/L Carbon Dioxide 26 (22-29) mmol/L Anion Gap 15 (12-20) BUN 12 (9-16) mg/dL Creatinine 0.89 (0.5-1.4) mg/dL Estim Creat Clear Calc 56.7 Estimated GFR > 60 Random Glucose 94 (60-115) mg/dL Lactic Acid (0.5-2.0) mmol/L Calcium 9.3 (8.4-10.2) mg/dL Total Bilirubin 0.2 (0.0-1.0) mg/dL AST 25 (5-31) U/L ALT 26 (0-31) U/L Alkaline Phosphatase 80 (39-117) U/L C-Reactive Protein < 0.10 (< or = 0.50) mg/dL Total Protein 7.0 (6.5-8.0) g/dL Albumin 4.7 (3.5-5.0) g/dL 02/28/23 Range/Units 12:27 WBC (4.8-10.8) X10*3/uL RBC (4.20-5.50) X10*6/uL Hgb (12.0-16.0) g/dl Hct (37.0-47.0) % MCV (80.0-98.0) fL MCH (27.0-33.0) pg MCHC (31.0-35.0) g/dl RDW (11.0-16.0) % Plt Count (160-400) X10*3/uL MPV (9.4-12.3) fL Immature Gran % (Auto) (0.0-0.4) % Neut % (Auto) (45-73) % Lymph % (Auto) (20-40) % Drew % (Auto) (2-11) % Eos % (Auto) (0-4) % Baso % (Auto) (0-2) % Lymph # (Auto) (1.2-4.9) X10*3/uL Drew # (Auto) (0.1-1.2) X10*3/uL Eos # (Auto) (0.0-0.4) X10*3/uL Baso # (Auto) (0.0-0.2) X10*3/uL Abs Immat Gran (auto) (0.00-0.03) X10*3/uL Absolute Neuts (auto) (2.0-8.3) x10*3/uL Absolute Nucleated RBC (0.0-0.012) X10*3/uL Nucleated RBC % (auto) (0.0-0.2) /100WBC PT (10.0-13.1) SEC INR (0.9-1.1) APTT (26.0-36.4) SEC Sodium (135-145) mmol/L Potassium (3.3-5.1) mmol/L Chloride (96-108) mmol/L Carbon Dioxide (22-29) mmol/L Anion Gap (12-20) BUN (9-16) mg/dL Creatinine (0.5-1.4) mg/dL Estim Creat Clear Calc Estimated GFR Random Glucose (60-115) mg/dL Lactic Acid 0.5 (0.5-2.0) mmol/L Calcium (8.4-10.2) mg/dL Total Bilirubin (0.0-1.0) mg/dL AST (5-31) U/L ALT (0-31) U/L Alkaline Phosphatase (39-117) U/L C-Reactive Protein (< or = 0.50) mg/dL Total Protein (6.5-8.0) g/dL Albumin (3.5-5.0) g/dL Independent Interpretation I performed an independent interpretation of an: Plain X-Ray Interpretation: My interpretation patient's left knee x-ray is as follows: Normal appearing prosthesis, no joint effusion, no acute fracture Radiology Impression Discussion of test interpretation with radiology: I have reviewed the radiologist's reading. Radiologist Impression: US venous duplex LE LT IMPRESSION: No DVT demonstrated in the left lower extremity. Dictated By:Nemesio Malhotra MDSigned By:<Electronically signed by Nemesio Malhotra MD in [place]>02/28/23 1236 XR knee LT 3V IMPRESSION: No significant abnormality of the left knee status post left knee arthroplasty. No acute fracture identified. Dictated By:Gildardo Clark V MDSigned By:<Electronically signed by Gildardo Clark MD in [place]>02/28/23 1240 Discharge Plan Discharge Clinical Impression: Left knee sprain Qualifiers: Encounter type: initial encounter Patient Disposition: Home, Self-Care Instructions: Knee Sprain (ED) Additional Instructions: The x-ray of your left knee revealed no broken bones or abnormality of the knee replacement to explain your symptoms Your duplex ultrasound of your left knee revealed no blood clots and no evidence for Valles cyst. Your laboratory evaluation was normal including a normal white blood cell count, non elevated sedimentation rate (ESR) and a normal C reactive protein (CRP). These tests are markers of inflammation, and it is reassuring that they are normal. I suspect that you may have sprained the patella tendon (Knee cap tendon) or the quadriceps muscles of your thigh. Rest, keep your leg elevated, apply ice for 15 minutes 4 to 6 times a day, take ibuprofen 200 mg pills, 2 pills every 6 hours as needed for pain. Follow-up with your doctor in 2 days. Please return to the emergency department if your symptoms get worse or if you develop any symptoms that are concerning to you. Prescriptions: No Action nitroglycerin 0.3 mg tablet, sublingual 0.3 mg SUBLINGUAL Q5M PRN (Reason: dysphagia) 30 Days Qty: 30 2RF pregabalin [Lyrica] 225 mg capsule 225 mg PO BID 30 Days Qty: 60 3RF Rx Instructions: Brand Name only, No Substitutions, Dispense as Written. Has tried and Does not tolerate Generic. epinephrine [EpiPen 2-Joaquín] 0.3 mg/0.3 mL auto-injector 0.3 mg IM ONCE PRN (Reason: anaphylaxis) 30 Days Qty: 2 2RF lansoprazole 30 mg capsule,delayed release(DR/EC) 30 mg PO BID 90 Days Qty: 180 3RF oxycodone 5 mg tablet 5 mg PO Q8H PRN (Reason: pain) 30 Days Qty: 90 0RF Rx Instructions: MassPat verified. Partial refill upon request. cholecalciferol (vitamin D3) [Vitamin D3] 50 mcg (2,000 unit) Tablet 50 mcg PO DAILY DHA 300 mg Capsule PO acetaminophen 650 mg tablet extended release 650 mg PO ONCE PRN ascorbic acid (vitamin C) [Vitamin C] 1,000 mg tablet 1 g PO DAILY Viibryd 40 mg tablet 40 mg PO DAILY Rx Instructions: must administer with a meal/food albuterol sulfate [Ventolin HFA] 90 mcg/actuation HFA aerosol inhaler 2 puff INHALATION Q4-6H PRN (Reason: shortness of breath or wheezing) 30 Days Qty: 8.5 6RF spironolactone 100 mg tablet 100 mg PO DAILY 120 Days Qty: 120 2RF ibuprofen 800 mg tablet 800 mg PO Q8H PRN (Reason: pain) 14 Days Qty: 42 0RF fluticasone propionate [Flonase Allergy Relief] 50 mcg/actuation spray,suspension 1 spray intranasal Q12H 30 Days Qty: 16 1RF Rx Instructions: administer into each nostril cetirizine [Zyrtec] 10 mg tablet 10 mg PO DAILY 30 Days Qty: 30 2RF
[2023-02-28 10:55] VITALS: BP 129/78; PULSE 73; RESP 18; TEMP 37.2; O2SAT 97
[2023-02-28 12:34] LABS: MANUAL DIFF FLAG NO
[2023-02-28 12:37] LABS: Basophils Percent Auto 0.3 % (0-2); Eosinophils Percent Auto 0.7 % (0-4); Hematocrit 43.2 % (37.0-47.0); Imm Gran Abs Auto 0.01 X10*3/uL (0.00-0.03); Imm Gran Pct Auto 0.2 % (0.0-0.4); Lymphocytes Absolute Auto 1.9 X10*3/uL (1.2-4.9); Lymphocytes Percent Auto 32.5 % (20-40); Mean Corpuscular HGB Conc 32.4 g/dl (31.0-35.0); Mean Corpuscular Hemoglobin 29.7 pg (27.0-33.0); Mean Corpuscular Volume 91.7 fL (80.0-98.0); Mean Platelet Volume 10.4 fL (9.4-12.3); Monocytes Absolute Auto 0.4 X10*3/uL (0.1-1.2); Monocytes Percent Auto 7.4 % (2-11); Neutrophils Absolute Auto 3.5 x10*3/uL (2.0-8.3); Neutrophils Percent Auto 58.9 % (45-73); Platelet Count 193 X10*3/uL (160-400); Red Blood Count 4.71 X10*6/uL (4.20-5.50); Red Cell Distribution Width 13.3 % (11.0-16.0); White Blood Count 5.9 X10*3/uL (4.8-10.8)
[2023-02-28 12:42] LABS: INTERNATIONAL NORM RATIO 0.9 (0.9-1.1); Prothrombin Time 10.3 SEC (10.0-13.1)
[2023-02-28 12:44] LABS: Partial Thromboplastin Time 32.7 SEC (26.0-36.4)
[2023-02-28 12:46] LABS: Lactic Acid 0.5 mmol/L (0.5-2.0)
[2023-02-28 12:51] LABS: Alanine Aminotransferase 26 U/L (0-31); Albumin Level 4.7 g/dL (3.5-5.0); Alkaline Phosphatase 80 U/L (39-117); Anion Gap 15 (12-20); Aspartate Amino Transferase 25 U/L (5-31); Bilirubin Total 0.2 mg/dL (0.0-1.0); Blood Urea Nitrogen 12 mg/dL (9-16); C Reactive Protein < 0.10 mg/dL (< or = 0.50); Calcium 9.3 mg/dL (8.4-10.2); Carbon Dioxide 26 mmol/L (22-29); Chloride 106 mmol/L (96-108); Creatinine Clr Calc Pharmacy 56.7; Estimated Glomerular Filt Rate > 60; Glucose Random 94 mg/dL (60-115); Potassium 4.3 mmol/L (3.3-5.1); Sodium 143 mmol/L (135-145)
[2023-02-28 13:16] LABS: Erythrocyte Sedimentation Rate 4 MM/HR (0-20)
[2023-02-28 13:32] VITALS: BP 142/94; PULSE 97; RESP 16; O2SAT 98
== END 2023-02-28 13:39 | disposition home or self-care (01) ==
PROVIDERS: Emergency Provider Emergency Medicine Emergency Medical Services; PCP Family Medicine
DX: S83.92XA Sprain of unspecified site of left knee, initial encounter (principal); X58.XXXA Exposure to other specified factors, initial encounter; M79.662 Pain in left lower leg; G35 Multiple sclerosis; M79.7 Fibromyalgia; Z96.652 Presence of left artificial knee joint; Z79.899 Other long term (current) drug therapy; Y93.9 Activity, unspecified; Y92.019 Unspecified place in single-family (private) house as the place of occurrence of the external cause; Y99.9 Unspecified external cause status
CPT/HCPCS: 36415; 73562; 80053; 83605; 85025; 85610; 85652; 85730; 86140; 87040; 93971; 99284

== ENCOUNTER 2023-03-15 10:50 | Emergency (ER) | payer OTHER, SELFPAY ==
--- NOTE | ~2023-03-15 | XR_ITS ---
EXAMINATION: XR CHEST CLINICAL INFORMATION: Chest pain COMPARISON: None available. TECHNIQUE: Frontal view of the chest was obtained. FINDINGS: Cardiac leads overlie the chest. The lungs are well expanded. There is no focal consolidation or edema. Small left pleural effusion suspected. No pneumothorax. The cardiomediastinal silhouette is within normal limits. No acute osseous abnormality. XR/XR chest 1V IMPRESSION: Small left pleural effusion suspected.
--- NOTE | 2023-03-15 10:53 | ECG_ITS ---
Test Reason : cp Blood Pressure : / mmHG Vent. Rate : 069 BPM Atrial Rate : 069 BPM P-R Int : 148 ms QRS Dur : 086 ms QT Int : 404 ms P-R-T Axes : 053 046 042 degrees QTc Int : 432 ms Normal sinus rhythm Normal ECG No previous ECGs available Referred By: Generic ED Physician Electronically Signed By:VAMSI BELLA
[2023-03-15 11:10] VITALS: BP 114/64; PULSE 69; RESP 13; TEMP 36.7; O2SAT 98; BMI 25.7
[2023-03-15 12:00] VITALS: BP 106/57; PULSE 74; RESP 12; O2SAT 95
--- NOTE | 2023-03-15 12:07 | ED_ITS ---
HPI - Chest Pain General Chief Complaint: Chest Pain Stated Complaint: Chest pain Time Seen by Provider: 03/15/23 11:56 Source: patient Mode of arrival: ambulatory Limitations: no limitations History of Present Illness HPI narrative: 57-year-old female history of fibromyalgia, chronic costochondritis, dysphagia, and GERD presents to the ED for intermittent chest pain described as pressure that began at 5am and resolved after taking 2 nitroglycerin. patient states pain came back. patient states midsternal chest pain radiating to right chest. Patient denies any leg swelling, calf pain, coughing up blood, fever, or chills. Patient denies any recent trauma to the chest. Patient takes nitro for dysphagia Related Data Home Medications Medication Instructions Recorded Confirmed vilazodone 40 mg tablet (Viibryd) 40 mg PO DAILY 12/06/20 05/16/22 cholecalciferol (vitamin D3) 50 50 mcg PO DAILY 03/04/21 05/16/22 mcg (2,000 unit) tablet (Vitamin D3) docosahexaenoic acid 300 mg capsule mg PO 03/04/21 05/16/22 acetaminophen 650 mg 650 mg PO ONCE PRN 01/26/22 05/16/22 tablet,extended release ascorbic acid (vitamin C) 1,000 mg 1 g PO DAILY 01/26/22 05/16/22 tablet (Vitamin C) Previous Rx's Medication Instructions Recorded spironolactone 100 mg tablet 100 mg PO DAILY 120 days #120 tabs 05/16/22 epinephrine 0.3 mg/0.3 mL 0.3 mg (0.3 mL) IM ONCE PRN 11/20/22 injection, auto-injector (EpiPen anaphylaxis 30 days #2 ea 2-Joaquín) cetirizine 10 mg tablet (Zyrtec) 10 mg PO DAILY 30 days #30 tabs 01/19/23 fluticasone propionate 50 1 spray intranasal Q12H 30 days 01/19/23 mcg/actuation nasal #16 grams spray,suspension (Flonase Allergy Relief) ibuprofen 800 mg tablet 800 mg PO Q8H PRN pain 14 days #42 01/19/23 tabs lansoprazole 30 mg capsule,delayed 30 mg PO BID 90 days #180 caps 02/03/23 release oxycodone 5 mg tablet 5 mg PO Q8H PRN pain 30 days #90 02/21/23 tabs Lyrica 225 mg capsule (pregabalin) 225 mg PO BID 30 days #60 caps 03/09/23 albuterol sulfate 90 mcg/actuation 2 puff inhalation Q4-6H PRN 03/09/23 aerosol inhaler (Ventolin HFA) shortness of breath or wheezing 30 days #8.5 grams nitroglycerin 0.3 mg sublingual 0.3 mg sublingual Q5M PRN 03/09/23 tablet dysphagia 30 days #30 tabs Allergies Allergy/AdvReac Type Severity Reaction Status Date / Time aluminum [Drysol] Allergy Unknown Unknown Verified 03/15/23 11:21 ciprofloxacin [Cipro] Allergy Unknown Unknown Verified 03/15/23 11:21 Clindamycin HCl Allergy Unknown Unknown Verified 03/15/23 11:21 codeine Allergy Unknown Unknown Verified 03/15/23 11:21 diazepam [Valium] Allergy Unknown Unknown Verified 03/15/23 11:21 doxycycline Allergy Unknown Unknown Verified 03/15/23 11:21 hydromorphone [Dilaudid] Allergy Unknown Unknown Verified 03/15/23 11:21 metronidazole [Flagyl] Allergy Unknown Unknown Verified 03/15/23 11:21 milnacipran [Savella] Allergy Unknown Unknown Verified 03/15/23 11:21 nitrofurantoin [Macrodantin] Allergy Unknown Unknown Verified 03/15/23 11:21 penicillin V Allergy Unknown Unknown Verified 03/15/23 11:21 Sulfa (Sulfonamide Allergy Unknown Unknown Verified 03/15/23 11:21 Antibiotics) sumatriptan [Imitrex] Allergy Unknown Unknown Verified 03/15/23 11:21 azithromycin Allergy Unknown Verified 03/15/23 11:21 gabapentin Allergy Unknown Verified 03/15/23 11:21 sulfamethoxazole Allergy Unknown Verified 03/15/23 11:21 [From Bactrim] trimethoprim [From Bactrim] Allergy Unknown Verified 03/15/23 11:21 Opal Allergy Unknown Unknown Uncoded 01/19/23 09:47 Codeine Sulfate Allergy Unknown Unknown Uncoded 01/19/23 09:47 Imitrex Allergy Unknown Unknown Uncoded 01/19/23 09:47 Penicillin Allergy Unknown Unknown Uncoded 01/19/23 09:47 Vibramycin Allergy Unknown Unknown Uncoded 01/19/23 09:47 Victyl Structures Allergy Unknown Unknown Uncoded 01/19/23 09:47 Xray Dye Allergy Unknown Unknown Uncoded 01/19/23 09:47 Review of Systems Review of Systems: Chest pain Yes all other systems are reviewed and are negative [facility] Past Medical History Medical History Arthritis Asthma Costochondritis CPRS 1 (complex regional pain syndrome I) of upper limb Dysphagia Fibromyalgia GERD (gastroesophageal reflux disease) Multiple sclerosis Nerve damage Trapezium fracture Surgical History H/O: hysterectomy History of surgery Hx of tooth extraction Total knee replacement status Family History Family History Father Pancreatic cancer Maternal Aunt Diabetes Breast cancer Sister Non-Hodgkin lymphoma Acute Crohn's disease Mother High cholesterol Hypertension Social History Social History Housing: Apartment Alcohol intake: never Patient Tobacco Use Status: Never used Tobacco Smoked in Last 30 Days: No e-Cigarette/Vaping Use: Never Used Second Hand Smoke Exposure: No Use of substances other than those prescribed or required for medical reasons: No Advance Directives: No Advance Directives Information Provided: No service: No Current occupational status: disabled Current occupational exposures/hazards: No Cognitive needs: No Hearing needs: No Vision needs: No Physical Exam Vital Signs: Vital Signs: Last Vital Signs Temp 98.0 F 03/15/23 11:10 Pulse 61 03/15/23 14:26 Resp 13 03/15/23 14:26 BP 108/58 L 03/15/23 14:26 Pulse Ox 97 03/15/23 15:38 O2 Del Method Room Air 03/15/23 15:38 BMI result Body Mass Index 25.7 Const: General: cooperative, healthy appearing, comfortable, no acute distress, well developed, alert, awake and Physically active Orientation/consciousness: oriented to person, oriented to place, oriented to time and patient oriented x3 HEENT: Head: Yes normal to inspection, Yes No palpable skull fracture present, Yes normocephalic, Yes atraumatic and No abrasion Eyes: General: appearance normal, both eyes and all related structures Neck: Neck: Yes normal visual inspection, Yes full ROM, Yes no lymphadenopathy, Yes no meningeal signs, Yes trachea midline, Yes supple, No anterior neck swelling and No tender Chest: Chest palpation & inspection: normal inspection of the chest and normal palpation of entire chest wall Resp: Effort & Inspection: normal respiratory effort and able to speak in complete sentences Auscultation: clear to auscultation bilaterally Cardio: Jugular venous distension: no JVD Heart sounds: S1 normal heart sound present and S2 normal heart sound present GI: Inspection: Yes normal to inspection and No abdominal wall ecchymosis Palpation (GI): Soft to palpation, not firm, nontender, no guarding and not rigid : General: No CVA tenderness and Yes no CVA tenderness Back/Spine/Pelvis: Back: no CVA tenderness, No CVA tenderness and No back tenderness Skin: General skin exam: no rashes or lesions noted and elasticity normal Neuro: Other: NIH score 0 General: oriented to person, oriented to place, oriented to time, patient oriented x3, gait normal, tone normal, moves all extremities, Normal light touch and pain sensation, no meningeal signs, no focal motor deficits, CN's II-XI intact bilaterally and normal sensation to monofilament Extrem: Other: Bilateral lower extremity negative for swelling, pitting edema, or calf tend erness. General: Yes normal to inspection and Yes full ROM Psych: Appearance: grossly normal, well kempt and not disheveled Course Course Course Narrative: Aspirin ordered and given to patient. Patient blood pressure systolic 101 would not give 3rd nitrate due to blood pressure being too low. Cardiac evaluation wi ll be done. Reevaluation(s) Reevaluation #1: EKG negative STEMI. First troponin negative. D-dimer negative Well's Score 0. . Patient presently asymptomatic and eating sandwich fries and drinking soda. Chest x-ray negative pneumonia. Plan is to do 2nd troponin. Time: 14:49 Reevaluation #2: O2 saturation on room air 98% on the monitor. O2 sat of 93% placed in computer is error ( positional). Patient presently is asymptomatic and not in any dist ress. Patient denies any chest pain or shortness of breath. Lungs are clear. Time: 15:40 Reevaluation #3: Patient's 2nd troponin negative. Patient is safe for discharge. Medications Administered Discontinued Medications Generic Name Dose Route Start Last Admin Trade Name Freq PRN Reason Stop Dose Admin Acetaminophen/Butalbital/Caffeine 2 tab 03/15/23 13:47 03/15/23 13:58 Butalb/Acetamin/Caff 50/325/40 Tablet PO 03/15/23 13:48 2 tab ONCE ONE Administration Aspirin 325 mg 03/15/23 12:32 03/15/23 12:51 Aspirin Enteric Coated 325 Mg Tablet.Dr NAZARIO 03/15/23 12:33 325 mg ONCE ONE Administration Medical Decision Making Medical Decision Making [facility] Narrative: 57-year-old female presents to ED for atypical chest pain described as substernal chest pain radiating to the right chest since 05:00 this morning intermittently. Patient denies chest pain radiates to the back. Patient denies any pleurisy. Patient asymptomatic throughout ED visit and ate bunch of food. Differential Diagnosis Differential Diagnoses: The differential diagnosis associated with the pre sentation includes (PE, heart failure, myocardial infarction, pneumonia,) Admission/Observation Consideration of admission/observation: Escalation of care including admission/observation considered Lab Data [facility] Lab Attestation statement: I reviewed the patient's lab results. 03/15/23 13:05 03/15/23 13:05 Labs: Lab Results 03/15/23 03/15/23 03/15/23 Range/Units 13:05 13:05 13:05 WBC 6.9 (4.8-10.8) X10*3/uL RBC 4.72 (4.20-5.50) X10*6/uL Hgb 13.9 (12.0-16.0) g/dl Hct 44.0 (37.0-47.0) % MCV 93.2 (80.0-98.0) fL MCH 29.4 (27.0-33.0) pg MCHC 31.6 (31.0-35.0) g/dl RDW 13.4 (11.0-16.0) % Plt Count 174 (160-400) X10*3/uL MPV 10.8 (9.4-12.3) fL Immature Gran % (Auto) 0.3 (0.0-0.4) % Neut % (Auto) 74.2 H (45-73) % Lymph % (Auto) 18.1 L (20-40) % Sumner % (Auto) 7.0 (2-11) % Eos % (Auto) 0.3 (0-4) % Baso % (Auto) 0.1 (0-2) % Lymph # (Auto) 1.3 (1.2-4.9) X10*3/uL [place]ner # (Auto) 0.5 (0.1-1.2) X10*3/uL Eos # (Auto) 0.0 (0.0-0.4) X10*3/uL Baso # (Auto) 0.0 (0.0-0.2) X10*3/uL Abs Immat Gran (auto) 0.02 (0.00-0.03) X10*3/uL Absolute Neuts (auto) 5.1 (2.0-8.3) x10*3/uL Absolute Nucleated RBC 0.000 (0.0-0.012) X10*3/uL Nucleated RBC % (auto) 0.0 (0.0-0.2) /100WBC PT (10.0-13.1) SEC INR (0.9-1.1) APTT (26.0-36.4) SEC D-Dimer High Sensitivty NG/ML Sodium 143 (135-145) mmol/L Potassium 4.8 (3.3-5.1) mmol/L Chloride 108 (96-108) mmol/L Carbon Dioxide 25 (22-29) mmol/L Anion Gap 15 (12-20) BUN 12 (9-16) mg/dL Creatinine 0.91 (0.5-1.4) mg/dL Estim Creat Clear Calc 55.8 Estimated GFR > 60 Random Glucose 109 (60-115) mg/dL Calcium 9.2 (8.4-10.2) mg/dL Total Bilirubin 0.2 (0.0-1.0) mg/dL AST 26 (5-31) U/L ALT 21 (0-31) U/L Alkaline Phosphatase 79 (39-117) U/L Troponin I High Sens < 2.7 (<3.5-17.0) ng/L B-Natriuretic Peptide (<100) pg/mL Total Protein 6.6 (6.5-8.0) g/dL Albumin 4.3 (3.5-5.0) g/dL Lipase 26 (8-78) U/L 03/15/23 03/15/23 03/15/23 Range/Units 13:05 13:47 15:12 WBC (4.8-10.8) X10*3/uL RBC (4.20-5.50) X10*6/uL Hgb (12.0-16.0) g/dl Hct (37.0-47.0) % MCV (80.0-98.0) fL MCH (27.0-33.0) pg MCHC (31.0-35.0) g/dl RDW (11.0-16.0) % Plt Count (160-400) X10*3/uL MPV (9.4-12.3) fL Immature Gran % (Auto) (0.0-0.4) % Neut % (Auto) (45-73) % Lymph % (Auto) (20-40) % Sumner % (Auto) (2-11) % Eos % (Auto) (0-4) % Baso % (Auto) (0-2) % Lymph # (Auto) (1.2-4.9) X10*3/uL Sumner # (Auto) (0.1-1.2) X10*3/uL Eos # (Auto) (0.0-0.4) X10*3/uL Baso # (Auto) (0.0-0.2) X10*3/uL Abs Immat Gran (auto) (0.00-0.03) X10*3/uL Absolute Neuts (auto) (2.0-8.3) x10*3/uL Absolute Nucleated RBC (0.0-0.012) X10*3/uL Nucleated RBC % (auto) (0.0-0.2) /100WBC PT 10.1 (10.0-13.1) SEC INR 0.9 (0.9-1.1) APTT 32.9 (26.0-36.4) SEC D-Dimer High Sensitivty < 150 NG/ML Sodium (135-145) mmol/L Potassium (3.3-5.1) mmol/L Chloride (96-108) mmol/L Carbon Dioxide (22-29) mmol/L Anion Gap (12-20) BUN (9-16) mg/dL Creatinine (0.5-1.4) mg/dL Estim Creat Clear Calc Estimated GFR Random Glucose (60-115) mg/dL Calcium (8.4-10.2) mg/dL Total Bilirubin (0.0-1.0) mg/dL AST (5-31) U/L ALT (0-31) U/L Alkaline Phosphatase (39-117) U/L Troponin I High Sens < 2.7 (<3.5-17.0) ng/L B-Natriuretic Peptide 34 (<100) pg/mL Total Protein (6.5-8.0) g/dL Albumin (3.5-5.0) g/dL Lipase (8-78) U/L Independent Interpretation I performed an independent interpretation of an: EKG (Normal sinus rhythm. Ventricular rate 69. Pr interval 148. QRS 86. QTC 432. Negative STEMI) Radiology Impression Discussion of test interpretation with radiology: I have reviewed the radiologist's reading. Discharge Plan Discharge Clinical Impression: Atypical chest pain Patient Disposition: Home, Self-Care Instructions: Chest Pain (DC) Additional Instructions: You're EKG and blood work came back negative for signs of heart attack and risk of blood clot. 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 Return to the ED for any chest pain, pleurisy, leg swelling, calf pain, coughing up blood, fever, chills, weakness, dizziness, passing out, or any other concerning symptoms. Prescriptions: No Action epinephrine [EpiPen 2-Joaquín] 0.3 mg/0.3 mL auto-injector 0.3 mg IM ONCE PRN (Reason: anaphylaxis) 30 Days Qty: 2 2RF lansoprazole 30 mg capsule,delayed release(DR/EC) 30 mg PO BID 90 Days Qty: 180 3RF oxycodone 5 mg tablet 5 mg PO Q8H PRN (Reason: pain) 30 Days Qty: 90 0RF Rx Instructions: [employer] verified. Partial refill upon request. albuterol sulfate [Ventolin HFA] 90 mcg/actuation HFA aerosol inhaler 2 puff INHALATION Q4-6H PRN (Reason: shortness of breath or wheezing) 30 Days Qty: 8.5 6RF nitroglycerin 0.3 mg tablet, sublingual 0.3 mg SUBLINGUAL Q5M PRN (Reason: dysphagia) 30 Days Qty: 30 2RF pregabalin [Lyrica] 225 mg capsule 225 mg PO BID 30 Days Qty: 60 3RF Rx Instructions: Brand Name only, No Substitutions, Dispense as Written. Has tried and Does not tolerate Generic. cholecalciferol (vitamin D3) [Vitamin D3] 50 mcg (2,000 unit) Tablet 50 mcg PO DAILY DHA 300 mg Capsule PO acetaminophen 650 mg tablet extended release 650 mg PO ONCE PRN ascorbic acid (vitamin C) [Vitamin C] 1,000 mg tablet 1 g PO DAILY Viibryd 40 mg tablet 40 mg PO DAILY Rx Instructions: must administer with a meal/food spironolactone 100 mg tablet 100 mg PO DAILY 120 Days Qty: 120 2RF ibuprofen 800 mg tablet 800 mg PO Q8H PRN (Reason: pain) 14 Days Qty: 42 0RF fluticasone propionate [Flonase Allergy Relief] 50 mcg/actuation spray,suspension 1 spray intranasal Q12H 30 Days Qty: 16 1RF Rx Instructions: administer into each nostril cetirizine [Zyrtec] 10 mg tablet 10 mg PO DAILY 30 Days Qty: 30 2RF Referrals: [facility] [place] [facility] [Provider Group] (Atypical chest pain) Stand Alone Forms: Work/School Release Print Language: Namibian
[2023-03-15] MEDS: Aspirin Enteric Coated 325 MG TABLET.DR PO (12:51)
[2023-03-15 13:18] LABS: MANUAL DIFF FLAG NO
[2023-03-15 13:19] LABS: Basophils Percent Auto 0.1 % (0-2); Eosinophils Percent Auto 0.3 % (0-4); Hemoglobin 13.9 g/dl (12.0-16.0); Imm Gran Abs Auto 0.02 X10*3/uL (0.00-0.03); Imm Gran Pct Auto 0.3 % (0.0-0.4); Lymphocytes Absolute Auto 1.3 X10*3/uL (1.2-4.9); Lymphocytes Percent Auto 18.1 % (20-40); Mean Corpuscular HGB Conc 31.6 g/dl (31.0-35.0); Mean Corpuscular Hemoglobin 29.4 pg (27.0-33.0); Mean Corpuscular Volume 93.2 fL (80.0-98.0); Mean Platelet Volume 10.8 fL (9.4-12.3); Monocytes Absolute Auto 0.5 X10*3/uL (0.1-1.2); Neutrophils Absolute Auto 5.1 x10*3/uL (2.0-8.3); Neutrophils Percent Auto 74.2 % (45-73); Platelet Count 174 X10*3/uL (160-400); Red Blood Count 4.72 X10*6/uL (4.20-5.50); Red Cell Distribution Width 13.4 % (11.0-16.0); White Blood Count 6.9 X10*3/uL (4.8-10.8)
[2023-03-15 13:47] LABS: Alanine Aminotransferase 21 U/L (0-31); Albumin Level 4.3 g/dL (3.5-5.0); Alkaline Phosphatase 79 U/L (39-117); Anion Gap 15 (12-20); Aspartate Amino Transferase 26 U/L (5-31); Bilirubin Total 0.2 mg/dL (0.0-1.0); Blood Urea Nitrogen 12 mg/dL (9-16); Calcium 9.2 mg/dL (8.4-10.2); Carbon Dioxide 25 mmol/L (22-29); Chloride 108 mmol/L (96-108); Creatinine Clr Calc Pharmacy 55.8; Estimated Glomerular Filt Rate > 60; Glucose Random 109 mg/dL (60-115); Lipase 26 U/L (8-78); Potassium 4.8 mmol/L (3.3-5.1); Sodium 143 mmol/L (135-145); Total Protein 6.6 g/dL (6.5-8.0)
[2023-03-15 13:53] LABS: Troponin-I High Sensitivity < 2.7 ng/L (<3.5-17.0)
[2023-03-15 13:58] LABS: B Type Natriuretic Peptide 34 pg/mL (<100)
[2023-03-15] MEDS: Butalb/Acetamin/Caff 50/325/40 TABLET 2 TAB PO (13:58)
[2023-03-15 14:10] LABS: INTERNATIONAL NORM RATIO 0.9 (0.9-1.1); Prothrombin Time 10.1 SEC (10.0-13.1)
[2023-03-15 14:12] LABS: Partial Thromboplastin Time 32.9 SEC (26.0-36.4)
[2023-03-15 14:22] LABS: D Dimer High Sensitivity < 150 NG/ML
[2023-03-15 14:26] VITALS: BP 108/58; PULSE 61; RESP 13; O2SAT 93
[2023-03-15 15:38] VITALS: O2SAT 97
[2023-03-15 15:50] LABS: Troponin-I High Sensitivity < 2.7 ng/L (<3.5-17.0)
== END 2023-03-15 16:29 | disposition home or self-care (01) ==
PROVIDERS: Physician Assistant; Emergency Provider Emergency Medicine; PCP Family Medicine
DX: R07.89 Other chest pain (principal); E78.00 Pure hypercholesterolemia, unspecified; R13.10 Dysphagia, unspecified; G35 Multiple sclerosis; Z79.899 Other long term (current) drug therapy
CPT/HCPCS: 36415; 71045; 80053; 83690; 83880; 84484; 85025; 85379; 85610; 85730; 93005; 99283; 99285

== ENCOUNTER 2023-04-25 07:37 | Outpatient (REF) | payer OTHER, SELFPAY ==
[2023-04-25 11:20] LABS: MANUAL DIFF FLAG NO
[2023-04-25 11:43] LABS: Basophils Percent Auto 0.2 % (0-2); Eosinophils Absolute Auto 0.1 X10*3/uL (0.0-0.4); Eosinophils Percent Auto 0.8 % (0-4); Hematocrit 44.6 % (37.0-47.0); Hemoglobin 14.1 g/dl (12.0-16.0); Imm Gran Abs Auto 0.01 X10*3/uL (0.00-0.03); Imm Gran Pct Auto 0.2 % (0.0-0.4); Lymphocytes Absolute Auto 1.8 X10*3/uL (1.2-4.9); Lymphocytes Percent Auto 28.4 % (20-40); Mean Corpuscular HGB Conc 31.6 g/dl (31.0-35.0); Mean Corpuscular Hemoglobin 29.3 pg (27.0-33.0); Mean Corpuscular Volume 92.5 fL (80.0-98.0); Mean Platelet Volume 11.7 fL (9.4-12.3); Monocytes Absolute Auto 0.4 X10*3/uL (0.1-1.2); Monocytes Percent Auto 6.8 % (2-11); Neutrophils Percent Auto 63.6 % (45-73); Platelet Count 204 X10*3/uL (160-400); Red Blood Count 4.82 X10*6/uL (4.20-5.50); Red Cell Distribution Width 13.2 % (11.0-16.0); White Blood Count 6.3 X10*3/uL (4.8-10.8)
[2023-04-25 11:58] LABS: Alanine Aminotransferase 18 U/L (0-31); Albumin Level 4.7 g/dL (3.5-5.0); Alkaline Phosphatase 71 U/L (39-117); Anion Gap 17 (12-20); Aspartate Amino Transferase 22 U/L (5-31); Bilirubin Total 0.4 mg/dL (0.0-1.0); Blood Urea Nitrogen 10 mg/dL (9-16); Calcium 9.7 mg/dL (8.4-10.2); Carbon Dioxide 25 mmol/L (22-29); Chloride 106 mmol/L (96-108); Cholesterol 237 mg/dL; Estimated Glomerular Filt Rate > 60; Glucose Fasting 93 mg/dL (60-99); HDL Cholesterol 57 mg/dL; LDL Cholesterol Calculated 141 mg/dl; Potassium 4.6 mmol/L (3.3-5.1); Sodium 143 mmol/L (135-145); TSH reflex Free T4 1.08 uIU/mL (0.32-4.0); Total Protein 7.2 g/dL (6.5-8.0); Triglycerides 196 mg/dL
== END 2023-04-25 07:38 | disposition home or self-care (01) ==
LOC: HO.WFDLDS 07:37
PROVIDERS: Visit Provider Family Medicine
DX: Z00.00 Encounter for general adult medical examination without abnormal findings (principal)
CPT/HCPCS: 36415; 80053; 80061; 84443; 85025

== ENCOUNTER 2023-05-23 12:24 | Outpatient (REF) | payer OTHER, SELFPAY ==
--- NOTE | ~2023-05-23 | MM_ITS ---
EXAMINATION: BONE DENSITOMETRY CLINICAL INDICATION: Osteoporosis. COMPARISON: Baseline BD dated 07/13/2020. TECHNIQUE: Using a [employer] DXA System (software version: 13.1) manufactured by [employer], dual-energy x-ray absorptiometry was performed of the lumbar spine and left hip. The images are of good technical quality. Summary results are attached. FINDINGS: LEFT FEMUR, NECK: Current: BMD 0.590 g/cm2, Z-score -2.0, T-score -3.2, osteoporosis. Baseline: BMD 0.615 g/cm2. LEFT FEMUR, TOTAL: Current: BMD 0.650 g/cm2, Z-score -2.0, T-score -2.8, osteoporosis, 2.0% increase from baseline (<5% change is not significant). Baseline: BMD 0.637 g/cm2. AP SPINE L1-L4: Current: BMD 0.859 g/cm2, Z-score -1.6, T-score -2.7, osteoporosis, 7.8% increase from baseline (<5% change is not significant). Baseline: BMD 0.797 g/cm2. IDENTIFIED RISK FACTORS: Early menopause, height loss, hysterectomy, bilateral oophorectomy, low calcium intake, osteoporosis, secondary osteoporosis. HISTORY OF FRACTURE: None listed. MEDICATIONS: Vitamin D. MM/XR DEXA axial skeleton IMPRESSION: 1. DIAGNOSIS: Osteoporosis based on the lowest T-score value of -3.2 in the femoral neck applying World Health Organization criteria. 2. 10-YEAR FRACTURE RISK PREDICTION, FRAX: According to the guidelines, FRAX calculation should only be performed on patients in the osteopenia bone density category. Therefore, FRAX was not performed on this patient. 3. Treatment Recommendations: NOF guidelines recommend consideration for treatment in postmenopausal women and men age 50 and older presenting with the following: -A hip or vertebral (clinical or morphometric) fracture. -T-score less than or equal to -2.5 at the femoral neck or spine after appropriate evaluation to exclude secondary causes. -Low bone mass at the hip or spine and a 10-year fracture probability by FRAX of greater than or equal to 3% for hip fracture or greater than or equal to 20% for major osteoporotic fracture based on the [place] adapted WHO algorithm. 4. Other Recommendations: All treatment decisions require clinical judgment and consideration of individual patient factors, including patient preferences, comorbidities, previous drug use, risk factors not captured in the FRAX model (e.g. frailty, falls, vitamin D deficiency, increased bone turnover, interval significant decline in bone density) and possible under or overestimation of fracture risk by FRAX. Additional medical evaluation for secondary cause of low bone mineral density may be appropriate. FUTURE SCAN RECOMMENDATION: People with diagnosed cases of osteoporosis or at high risk for fracture should have regular bone mineral density tests. For patients eligible for Medicare, routine testing is allowed once every 2 years. The testing frequency can be increased to one year for patients who have rapidly progressing disease, those who are receiving or discontinuing medical therapy to restore bone mass, or have additional risk factors.
== END 2023-05-23 12:25 | disposition home or self-care (01) ==
LOC: HO.MAMMO 12:24
PROVIDERS: Visit Provider Family Medicine
DX: M81.0 Age-related osteoporosis without current pathological fracture (principal); M25.551 Pain in right hip
CPT/HCPCS: 73502; 77080

== ENCOUNTER 2023-06-08 10:24 | Outpatient (AMB) | payer MEDICARE, MEDICAID, SELFPAY ==
[2023-06-08 10:38] VITALS: BP 100/62; PULSE 79; RESP 14; TEMP 36.5; O2SAT 96; BMI 25.7
--- NOTE | 2023-06-08 10:38 | MHC.PC.OV ---
Vital Signs 06/08/23 10:38 Height 5 ft 1 in Weight 136 lb BMI 25.7 BP 100/62 Blood Pressure Location Rt brachial Position Sitting Respiration 14 Pulse 79 Pulse Source Pulse Oximeter Temp 97.7 F Temp Source Temporal Artery Scan Pulse Oximetry (%) 96 Oxygen Delivery Method Room Air Intake Visit Reasons: f/u hip pain Intake Note: Patient is here to follow up with hip pain and she has had a bone density and an xray. Patient states she has called several times for the results and heard no response back. Patient is upset about this. 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 by: Self / Same As Patient Allergies aluminum [Drysol] Allergy (Unknown, Verified 06/08/23 10:44) Unknown ciprofloxacin [Cipro] Allergy (Unknown, Verified 06/08/23 10:44) Unknown Clindamycin HCl Allergy (Unknown, Verified 06/08/23 10:44) Unknown codeine Allergy (Unknown, Verified 06/08/23 10:44) Unknown diazepam [Valium] Allergy (Unknown, Verified 06/08/23 10:44) Unknown doxycycline Allergy (Unknown, Verified 06/08/23 10:44) Unknown hydromorphone [Dilaudid] Allergy (Unknown, Verified 06/08/23 10:44) Unknown metronidazole [Flagyl] Allergy (Unknown, Verified 06/08/23 10:44) Unknown milnacipran [Savella] Allergy (Unknown, Verified 06/08/23 10:44) Unknown nitrofurantoin [Macrodantin] Allergy (Unknown, Verified 06/08/23 10:44) Unknown penicillin V Allergy (Unknown, Verified 06/08/23 10:44) Unknown Sulfa (Sulfonamide Antibiotics) Allergy (Unknown, Verified 06/08/23 10:44) Unknown sumatriptan [Imitrex] Allergy (Unknown, Verified 06/08/23 10:44) Unknown azithromycin Allergy (Verified 06/08/23 10:44) Unknown gabapentin Allergy (Verified 06/08/23 10:44) Unknown sulfamethoxazole [From Bactrim] Allergy (Verified 06/08/23 10:44) Unknown trimethoprim [From Bactrim] Allergy (Verified 06/08/23 10:44) Unknown [place] Allergy (Unknown, Uncoded 03/22/23 10:57) Unknown Codeine Sulfate Allergy (Unknown, Uncoded 03/22/23 10:57) Unknown Imitrex Allergy (Unknown, Uncoded 03/22/23 10:57) Unknown Penicillin Allergy (Unknown, Uncoded 03/22/23 10:57) Unknown Vibramycin Allergy (Unknown, Uncoded 03/22/23 10:57) Unknown Victyl Structures Allergy (Unknown, Uncoded 03/22/23 10:57) Unknown Xray Dye Allergy (Unknown, Uncoded 03/22/23 10:57) Unknown Tobacco use date assessed: 02/12/23 Dental Screening Dental Screen Date: 06/08/23 Did you have a dental visit in the last 12 months?: Yes Did you have a dental problem in the last 6 months where you did not have access to dental care?: No Was dental information given to patient?: Patient has dentist HPI f/u hip pain HPI Details Pt presents to f/u R hip pain. Hip X-ray 05/23/23 showed a normal R hip. She reports ongoing hip pain. She continues taking ibuprofen and oxycodone for pain relief. Bone density test 05/23/23 showed osteoporosis which has neither gotten better nor worse. PFSH Medical History Arthritis Asthma Costochondritis CPRS 1 (complex regional pain syndrome I) of upper limb Dysphagia Fibromyalgia GERD (gastroesophageal reflux disease) Multiple sclerosis Nerve damage Trapezium fracture Surgical History H/O: hysterectomy History of surgery Hx of tooth extraction Total knee replacement status Family History Father Pancreatic cancer Maternal Aunt Diabetes Breast cancer Sister Non-Hodgkin lymphoma Acute Crohn's disease Mother High cholesterol Hypertension Social History Housing: Apartment Alcohol intake: never Patient Tobacco Use Status: Never used Tobacco e-Cigarette/Vaping Use: Never Used Second Hand Smoke Exposure: No service: No Current occupational status: disabled Current occupational exposures/hazards: No Cognitive needs: No Hearing needs: No Vision needs: No Questionnaire Thrive Questionnaire Date Thrive assessed: 01/05/22 SONU-7 AMB Questionnaire SONU-7 Date SONU - 7 assessed: 02/20/22 Source: Developed by Drs. Pepe Leon, Roseline Seay, Mandeep Wen and colleagues, with an educational meenu from [employer]. Physical exam (Primary Care) Vital Signs: Last Vital Signs Temp 97.7 F 06/08/23 10:38 Pulse 79 06/08/23 10:38 Resp 14 06/08/23 10:38 BP 100/62 06/08/23 10:38 Pulse Ox 96 06/08/23 10:38 Oxygen Delivery Method Room Air 06/08/23 10:38 BMI result Body Mass Index 25.7 Tobacco/Smoking Status: Tobacco use Status Tobacco use date assessed 02/12/23 06/08/23 10:45 Patient Tobacco Use Status Never used Tobacco 06/08/23 10:45 e-Cigarette/Vaping Use Never Used 06/08/23 10:45 Thrive Assessment: Date of Thrive Assessment Date Thrive assessed 01/05/22 06/08/23 10:45 Assessment and Plan Assessment & Plan (1) Hip pain: Code(s): M25.559 - Pain in unspecified hip Plan: Right hip pain X-ray shows no bony abnormalities Start physical therapy Refer to ortho (2) Osteoporosis: Code(s): M81.0 - Age-related osteoporosis without current pathological fracture Plan: Lowest T-score-3.2 which is unchanged from bone density testing in 2020 Will continue to follow Orders: Orders PT Evaluation and Treatment Today M25.559 - Pain in unspecified hip Referrals Orthopedics Referral M25.559 - Pain in unspecified hip Medications: Refilled oxycodone 5 mg PO Q8H PRN 84 tabs 0RF pain 28 days Coding Level of Care Code Est Pt Level 3 (42252) Diagnoses Hip pain M25.559 Osteoporosis M81.0
== END 2023-06-08 12:02 | disposition home or self-care (01) ==
PROVIDERS: PCP Family Medicine; Visit Provider Family Medicine
DX: M25.559 Pain in unspecified hip (principal); M81.0 Age-related osteoporosis without current pathological fracture
CPT/HCPCS: 99213

== ENCOUNTER 2023-07-24 10:50 | Outpatient (AMB) | payer MEDICARE, MEDICAID, SELFPAY ==
[2023-07-24 10:58] VITALS: BP 110/68; PULSE 85; O2SAT 98; BMI 25.7
--- NOTE | 2023-07-24 10:58 | MHC.PC.OV ---
Vital Signs 07/24/23 10:58 Height 5 ft 1 in Weight 136 lb BMI 25.7 BP 110/68 Blood Pressure Location Lt brachial Position Sitting Pulse 85 Pulse Source Pulse Oximeter Pulse Oximetry (%) 98 Oxygen Delivery Method Room Air Intake Visit Reasons: Extended exam with f/u labs and health maintenance Intake Note: Patient is here for extended exam and follow up labs. Accompanied by: Mother Allergies aluminum [Drysol] Allergy (Unknown, Verified 07/24/23 11:03) Unknown ciprofloxacin [Cipro] Allergy (Unknown, Verified 07/24/23 11:03) Unknown Clindamycin HCl Allergy (Unknown, Verified 07/24/23 11:03) Unknown codeine Allergy (Unknown, Verified 07/24/23 11:03) Unknown diazepam [Valium] Allergy (Unknown, Verified 07/24/23 11:03) Unknown doxycycline Allergy (Unknown, Verified 07/24/23 11:03) Unknown hydromorphone [Dilaudid] Allergy (Unknown, Verified 07/24/23 11:03) Unknown metronidazole [Flagyl] Allergy (Unknown, Verified 07/24/23 11:03) Unknown milnacipran [Savella] Allergy (Unknown, Verified 07/24/23 11:03) Unknown nitrofurantoin [Macrodantin] Allergy (Unknown, Verified 07/24/23 11:03) Unknown penicillin V Allergy (Unknown, Verified 07/24/23 11:03) Unknown Sulfa (Sulfonamide Antibiotics) Allergy (Unknown, Verified 07/24/23 11:03) Unknown sumatriptan [Imitrex] Allergy (Unknown, Verified 07/24/23 11:03) Unknown azithromycin Allergy (Verified 07/24/23 11:03) Unknown gabapentin Allergy (Verified 07/24/23 11:03) Unknown sulfamethoxazole [From Bactrim] Allergy (Verified 07/24/23 11:03) Unknown trimethoprim [From Bactrim] Allergy (Verified 07/24/23 11:03) Unknown Line [place] Allergy (Unknown, Uncoded 07/24/23 11:03) Unknown Codeine Sulfate Allergy (Unknown, Uncoded 07/24/23 11:03) Unknown Imitrex Allergy (Unknown, Uncoded 07/24/23 11:03) Unknown Penicillin Allergy (Unknown, Uncoded 07/24/23 11:03) Unknown Vibramycin Allergy (Unknown, Uncoded 07/24/23 11:03) Unknown Victyl Structures Allergy (Unknown, Uncoded 07/24/23 11:03) Unknown Xray Dye Allergy (Unknown, Uncoded 07/24/23 11:03) Unknown Tobacco use date assessed: 07/24/23 Dental Screening Dental Screen Date: 07/24/23 Did you have a dental visit in the last 12 months?: Yes Did you have a dental problem in the last 6 months where you did not have access to dental care?: No Was dental information given to patient?: Patient has dentist HPI Extended exam with f/u labs and health maintenance HPI Details 58 y/o female presents for an extended exam with f/u labs and health maintenance. Also f/u R hip pain - hip x-ray had been negative for bone abnormality. Started PT and referred to [facility] orthopedics. No recent labs to review. She reports ongoing L hand pain. [facility] in [place] - Neuro Referral She reports last colonoscopy was this year and they had recommended a 3 year follow-up. She notes they had seen some polyps. HPI Comments History of Present Illness Details Documentation assistance for Wiliam Jones MD, was provided by Rich Gifford,? Keeper Helper on 07/24/2023 12:00 PM EST. I, Dr. Jones, have read, observed, and verified documentation. [facility] Medical History (Updated 07/24/23 @ 11:47 by Rich Gifford) Arthritis Asthma Chronic pain syndrome Costochondritis CPRS 1 (complex regional pain syndrome I) of upper limb Dysphagia Fibromyalgia GERD (gastroesophageal reflux disease) Multiple sclerosis Nerve damage Trapezium fracture Surgical History H/O: hysterectomy History of surgery Hx of tooth extraction Total knee replacement status Family History Father Pancreatic cancer Maternal Aunt Diabetes Breast cancer Sister Non-Hodgkin lymphoma Acute Crohn's disease Mother High cholesterol Hypertension Social History Housing: Apartment Alcohol intake: never Patient Tobacco Use Status: Never used Tobacco e-Cigarette/Vaping Use: Never Used Second Hand Smoke Exposure: No service: No Current occupational status: disabled Current occupational exposures/hazards: No Cognitive needs: No Hearing needs: No Vision needs: No Questionnaire PHQ-9 Over the last 2 weeks, how often have you been bothered by any of the following problems? 1. Little interest or pleasure in doing things: nearly every day 2. Feeling down, depressed, or hopeless: nearly every day 3. Trouble falling or staying asleep, or sleeping too much: nearly every day 4. Feeling tired or having little energy: several days 5. Poor appetite or overeating: nearly every day 6. Feeling bad about yourself - or that you are a failure or have let yourself or your family down: nearly every day 7. Trouble concentrating on things, such as reading the newspaper or watching television: nearly every day 8. Moving or speaking so slowly that other people could have noticed. Or the opposite - being so fidgety or restless that you have been moving around a lot more than usual: nearly every day 9. Thoughts that you would be better off or of hurting yourself in some way: several days Total score: 23 Source: Developed by Drs. Pepe Leon, Roseline Seay, Mandeep Wen and colleagues, with an educational meenu from [employer]. Thrive Questionnaire Date Thrive assessed: 01/05/22 I am a: Patient What is your living situation today?: I have a steady place to live Within the past 12 months, did the food you bought not last and you didn't have the money to get more?: Never true Within the past 12 months, did you worry whether your food would run out before you got money to buy more?: Never true Do you have trouble paying for medicines?: No Do you have trouble getting transportation to medical appointments?: No Do you have trouble paying your heating and electricity bill?: No Do you have trouble taking care of your child, family member or friend?: Yes Do you have trouble with day-to-day activities such as bathing, preparing meals, shopping, managing finances, etc.?: Yes Are you currently unemployed and looking for a job?: No Are you interested in more education?: No AUDIT C Alcohol Use Questionnaire (AUDIT-C) 1. How often do you have a drink containing alcohol?: Never 3. How often do you have six or more drinks on one occasion?: Never Total Score: 0 SONU-7 AMB Questionnaire SONU-7 Date SONU - 7 assessed: 07/24/23 Feeling nervous, anxious, or on edge: 3 = Nearly every day Not being able to stop or control worryin = Nearly every day Worrying too much about different things: 3 = Nearly every day Trouble relaxin = Nearly every day Being so restless that it is hard to sit still: 3 = Nearly every day Becoming easily annoyed or irritable: 3 = Nearly every day Feeling afraid as if something awful might happen: 0 = Not at all Total SONU-7 score (0-4 normal; 5-9 mild; 10-14 moderate; 15-21 severe): 18 Source: Developed by Drs. Pepe Leon, Roseline Seay, Mandeep Wen and colleagues, with an educational meenu from [employer]. ACT Questionnaire In the past 4 weeks, how much of the time did your asthma keep you from getting as much done at work, school or at home?: None of the time During the past 4 weeks, how often have you had shortness of breath?: 1-2 times a week During the past 4 weeks, how often did your asthma symptoms wake you up at night or earlier than usual in the morning?: Not at all During the past 4 weeks, how often have you had to use your rescue inhaler or nebulizer medication?: 2-3 times a week How would you rate your asthma control during the past 4 weeks?: Well controlled Score: 21 Review of Systems Const Denies chills, Denies fatigue, Denies fever(s), Denies headache(s) and Denies weakness Eyes Denies change in vision ENT Denies dizziness, Denies headache(s), Denies hearing loss, Denies nasal congestion, Denies sinus pain, Denies sinus pressure and Denies sore throat Card Denies chest pain, Denies lightheadedness, Denies dyspnea and Denies other (palpitations) Resp Denies cough, Denies dyspnea and Denies wheezing GI Denies abdominal pain, Denies melena, Denies hematochezia, Denies change in bowel habits, Denies dyspepsia and Denies nausea Denies hematuria and Denies dysuria Musc Denies abnormal gait, Denies myalgias, Denies arthralgias, Denies numbness and Denies tingling Skin/Breast Denies rash, Denies unusual bruising and Denies wounds Neuro Denies abnormal gait, Denies dizziness, Denies headache(s), Denies memory loss, Denies numbness, Denies Sensory deficit (Neuro), Denies tingling and Denies weakness Psych Denies anxiety, Denies depression and Denies memory loss Endo Denies cold intolerance, Denies fatigue, Denies heat intolerance, Denies polydipsia and Denies polyuria Chidi/Lymph Denies easy bleeding and Denies easy bruising Aller/Immun Denies wheezing Physical exam (Primary Care) Vital Signs: Last Vital Signs Pulse 85 07/24/23 10:58 BP 110/68 07/24/23 10:58 Pulse Ox 98 07/24/23 10:58 Oxygen Delivery Method Room Air 07/24/23 10:58 BMI result Body Mass Index 25.7 Tobacco/Smoking Status: Tobacco use Status Tobacco use date assessed 07/24/23 07/24/23 11:07 Patient Tobacco Use Status Never used Tobacco 07/24/23 11:02 e-Cigarette/Vaping Use Never Used 07/24/23 11:02 PHQ-9: PHQ-9 Score PHQ-9: Total score 23 07/24/23 11:42 Thrive Assessment: Date of Thrive Assessment Date Thrive assessed 01/05/22 07/24/23 11:02 Const General: no acute distress, well developed, alert and awake Nutritional Appearance: well nourished Orientation/consciousness: patient oriented x3 HENMT Head: Yes normocephalic and Yes atraumatic Ears: hearing grossly normal bilaterally and TM's normal bilaterally General nose exam: Normal external nose present and Normal nares present Mouth: Normal oral and palatal mucosa present and moist mucous membranes Teeth and gingiva: dentition normal Throat: Yes posterior oropharynx normal Eyes General: appearance normal, both eyes and all related structures Pupils: Equal, round and reactive pupils present and Pupil accommodation reflex normal EOM: EOMs intact bilaterally Neck Neck: Yes normal visual inspection, Yes no lymphadenopathy and Yes trachea midline Thyroid: Thyroid normal Carotids: no bruits Lymphatic: no lymphadenopathy noted Chest Chest palpation & inspection: normal inspection of the chest Resp Effort & Inspection: normal respiratory effort Auscultation: clear to auscultation bilaterally Cardio Rate: regular rate Rhythm: regular rhythm Heart sounds: S1 normal heart sound present, S2 normal heart sound present, no gallops, no murmurs and no rubs Bruits: no abdominal aortic bruits and no carotid bruits GI Palpation (GI): No Abdominal aortic bruit present, Soft to palpation, nontender, No hepatosplenomegaly present and No Rebound tenderness present Auscultation: normal bowel sounds General: Yes no CVA tenderness Back/Spine/Pelvis Back: no CVA tenderness Cervical Spine: cervical ROM normal and No Cervical spine tenderness Thoracic/Lumbar Spine: thoraco-lumbar ROM normal, No pain with thoraco-lumbar ROM, No thoracic spinal tenderness and No lumbar spinal tenderness Skin Lesions: no lesions Rashes: no rashes Trauma: no lacerations or abrasions Wounds: no wounds Nails: normal Neuro General: patient oriented x3 Cranial nerves: Yes Equal, round and reactive pupils present Cognition (Neuro): normal cognition Gait exam (Neuro): gait abnormal and Assisted gait required (Uses a walker) Motor exam (neuro): 5/5 motor strength present throughout Sensory Exam: No Sensory deficit (Neuro) Deep tendon reflexes (DTR's): Right patellar reflex intensity grade: 2+ and Left patellar reflex intensity grade: 2+ Extrem Other: Swelling on R foot and leg General: Yes normal to inspection and No edema Psych Appearance: grossly normal Affect: normal affect Attitude: cooperative Thought process: Normal thought process present Assessment and Plan Assessment & Plan (1) Hip pain: Code(s): M25.559 - Pain in unspecified hip Plan: Right hip and leg pain with swelling down to right foot She recently saw Ortho and was told this is additional regional pain syndrome which she has been dealing with in her left arm and hand She is already on Lyrica and oxycodone. She is also using ibuprofen 800 mg 3 times a day and some Tylenol. Declines diclofenac gel and is allergic to lidocaine. She says that tricyclic antidepressants do not work for pain for her. Will refer to Neurology and Rheumatology (2) Osteoporosis: Code(s): M81.0 - Age-related osteoporosis without current pathological fracture Plan: History of osteoporosis. Had been on alendronate in the past Checking vitamin D She is referred to rheumatology and can discuss further (3) Screening for cervical cancer: Code(s): Z12.4 - Encounter for screening for malignant neoplasm of cervix Plan: History of hysterectomy No longer gets Pap smears (4) Breast cancer screening by mammogram: Code(s): Z12.31 - Encounter for screening mammogram for malignant neoplasm of breast Plan: Mammogram at [facility] in February showed no evidence of malignancy Follow-up in 1 year (5) Screening for colon cancer: Code(s): Z12.11 - Encounter for screening for malignant neoplasm of colon Plan: Saw Dr Sousa recently and has polyps and is followed Q 3 years (6) Complex regional pain syndrome type 1 of upper extremity: Code(s): G90.519 - Complex regional pain syndrome I of unspecified upper limb Plan: Complex regional pain syndrome and history of MS. Symptoms at left hand and now new symptoms at right leg which are currently severe Referred to neurology and also Rheumatology as per patient request Continue medications as discussed above (7) Hand pain: Code(s): M79.643 - Pain in unspecified hand Plan: As above (8) Multiple sclerosis: Code(s): G35 - Multiple sclerosis Plan: Referred to [facility] (9) Fibromyalgia: Code(s): M79.7 - Fibromyalgia Plan: Referred to [facility] (10) Adult general medical exam: Code(s): Z00.00 - Encounter for general adult medical examination without abnormal findings Plan: 58-year-old female presents for extended exam Encouraged healthy diet with active lifestyle and plenty of exercise As tolerated. Orders: Orders Microalbumin, Random (w Creat) Today I10 - Essential (primary) hypertension UA and rflx microscopic Today Z00.00 - Encounter for general adult medical examination without abnormal findings Vitamin D 25-OH Total Today E55.9 - Vitamin D deficiency, unspecified Erythrocyte Sedimentation Rate Today M25.559 - Pain in unspecified hip CRP High Sensitivity Today M25.559 - Pain in unspecified hip Referrals Neurology Referral G35 - Multiple sclerosis, G90.519 - Complex regional pain syndrome I of unspecified upper limb, M25.559 - Pain in unspecified hip Rheumatology Referral M25.559 - Pain in unspecified hip, M81.0 - Age-related osteoporosis without current pathological fracture Coding Level of Care Code Est Pt Level 4 (49306) Diagnoses Hip pain M25.559 Osteoporosis M81.0 Screening for cervical cancer Z12.4 Breast cancer screening by mammogram Z12.31 Screening for colon cancer Z12.11 Complex regional pain syndrome type 1 of upper extremity G90.519 Hand pain M79.643 Multiple sclerosis G35 Fibromyalgia M79.7 Adult general medical exam Z00.00
== END 2023-07-24 12:05 | disposition home or self-care (01) ==
PROVIDERS: PCP Family Medicine; Visit Provider Family Medicine
DX: M25.551 Pain in right hip (principal); G35 Multiple sclerosis; M79.642 Pain in left hand; M79.7 Fibromyalgia; M81.0 Age-related osteoporosis without current pathological fracture; G90.519 Complex regional pain syndrome I of unspecified upper limb
CPT/HCPCS: 99214

== ENCOUNTER 2023-08-24 11:11 | Outpatient (AMB) | payer MEDICARE, MEDICAID, SELFPAY ==
[2023-08-24 11:19] VITALS: BP 112/62; PULSE 71; O2SAT 99
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
== END 2023-08-24 12:08 | disposition home or self-care (01) ==
PROVIDERS: PCP Family Medicine; Visit Provider Family Medicine
DX: G90.519 Complex regional pain syndrome I of unspecified upper limb (principal); M79.7 Fibromyalgia; G35 Multiple sclerosis; F43.10 Post-traumatic stress disorder, unspecified
CPT/HCPCS: 99214

== ENCOUNTER → 2024-07-24 13:21 | Outpatient (RCR) | payer OTHER, SELFPAY ==
[2021-03-04 13:06] VITALS: BP 114/69; PULSE 73; RESP 12; TEMP 36.7; O2SAT 98; BMI 23.1
--- NOTE | 2021-03-04 13:13 | P.CNHO_ITS ---
Subjective - Subjective Chief complaint: CONSULT for: Patient: new to practice Consult date: 03/04/21 Requesting Physician: Karen. Primary Care Provider: Wiliam Jones MD Medical Summary: DIAGNOSIS: OSTEOPOROSIS. CURRENT THERAPY: To arrange for Reclast. HPI - Consult Narrative Reason for consult: Consult for: Narrative: Cassandra Franco is a pleasant 55 year old lady, with a history of MS. She has been known to have osteoporosis for at least 8-10 years now. She was maintained on a regimen of Reclast annually for 5 years. She was then on a break for 5. However she is already overdue for it by 3 years. ROS: She does feel rather fatigued. She has mental clouding related to the MS. Denies headaches but sometimes gets dizzy. No chest pain or trouble breathing. She denies any abdominal pain nausea vomiting heartburn indigestion. Her bowels are working without any gross blood in it. Appetite is fair. She has lost weight. She has some urinary difficulty and incontinence. She is constantly in pain on account of her left hand. She had arthritis. She had surgery it got messed up. Family history: Both her grandma and mom had osteoporosis. 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 Currently on disability due to MS. She got a 12 years ago. She does not have any children. Denies smoking. Denies alcohol. Review of Systems - Constitutional Reports system reviewed and no additional complaints, except as documented, Reports body ache(s), Reports fatigue, Reports lack of energy, Reports malaise, Reports weakness, Reports weight loss - Eyes Reports system reviewed and no additional complaints, except as documented, Reports blurry vision - ENT Reports system reviewed and no additional complaints, except as documented - Cardiovascular Reports system reviewed and no additional complaints, except as documented, Denies chest pain at rest - Respiratory Reports no additional respiratory complaints, Denies chest congestion - Gastrointestinal Reports system reviewed and no additional complaints, except as documented, Reports change in bowel habits, Denies abdominal pain, Denies belching - Genitourinary Reports no additional female genitourinary complaints - Musculoskeletal Reports system reviewed and no additional complaints, except as documented, Reports abnormal walking, Reports back pain, Reports body aches, Reports decreased muscle mass, Reports joint pain, Reports muscle weakness, Reports numbness - Integumentary/Breasts Skin/Breast: Reports no additional skin complaints, Denies bleeding lesions - Neurologic Reports system reviewed and no additional complaints, except as documented - Psychiatric Reports system reviewed and no additional complaints, except as documented - Endocrine Reports no additional endocrine complaints, Denies excessive sweating - Hematologic/Lymphatic Reports system reviewed and no additional complaints, except as documented, De nies easy bruising - Allergic/Immunologic Reports system reviewed and no additional complaints, except as documented, Reports GI upset with certain foods Oncology Screenings - ECOG Performance Status ECOG Performance Status: 0 [facility] Medical History: Medical History (Last Updated 03/04/21 @ 13:30 by Chinyere Suarez) Arthritis Asthma Costochondritis CPRS 1 (complex regional pain syndrome I) of upper limb Dysphagia Fibromyalgia GERD (gastroesophageal reflux disease) Multiple sclerosis Nerve damage Trapezium fracture Functional capacity: independent ambulation Patient : No Family History: Family History (Last Updated 03/04/21 @ 13:19 by Chinyere Suarez) Father Pancreatic cancer Maternal Aunt Diabetes Breast cancer Sister Non-Hodgkin lymphoma Acute Crohn's disease Mother High cholesterol Hypertension Surgical History: Surgical History (Last Updated 03/04/21 @ 13:30 by Chinyere Suarez) H/O: hysterectomy Total knee replacement status Social History: Social History (Last Updated 03/04/21 @ 13:16 by Chinyere Suarez) Alcohol History: Alcohol intake: former Alcohol History Details: Alcohol intake frequency: does not drink Tobacco History: Smoking Status: Former smoker Substance Use History: Use of substances other than those prescribed or required for medical reasons : No Nutrition Assessment: Patient : No Home Medications and Allergies Home Medications Medication Instructions Recorded Confirmed Type vilazodone 40 mg tablet 40 mg PO DAILY 12/06/20 02/16/21 History topiramate 200 mg tablet 300 mg PO DAILY tab 02/16/21 03/04/21 History acetaminophen [Tylenol Arthritis] mg PO 03/04/21 History albuterol sulfate [Ventolin HFA] INHALATION 03/04/21 History ascorbic acid (vitamin C) [Vitamin 500 mg PO DAILY 03/04/21 03/04/21 History C] cholecalciferol (vitamin D3) 50 mcg PO DAILY 03/04/21 03/04/21 History [Vitamin D3] docosahexaenoic acid [ DHA] mg PO 03/04/21 03/04/21 History nitroglycerin 0.3 mg SUBLINGUAL Q5M PRN 03/04/21 03/04/21 History Allergies Allergy/AdvReac Type Severity Reaction Status Date / Time aluminum [Drysol] Allergy Unknown Unknown Verified 03/04/21 13:40 ciprofloxacin [Cipro] Allergy Unknown Unknown Verified 03/04/21 13:40 Clindamycin HCl Allergy Unknown Unknown Unverified 03/04/21 13:40 codeine Allergy Unknown Unknown Verified 03/04/21 13:40 diazepam [Valium] Allergy Unknown Unknown Verified 03/04/21 13:40 doxycycline Allergy Unknown Unknown Unverified 03/04/21 13:40 hydromorphone [Dilaudid] Allergy Unknown Unknown Verified 03/04/21 13:40 metronidazole [Flagyl] Allergy Unknown Unknown Verified 03/04/21 13:40 milnacipran [Savella] Allergy Unknown Unknown Verified 03/04/21 13:40 nitrofurantoin [Macrodantin] Allergy Unknown Unknown Verified 03/04/21 13:40 penicillin V Allergy Unknown Unknown Verified 03/04/21 13:40 Sulfa (Sulfonamide Allergy Unknown Unknown Unverified 03/04/21 13:40 Antibiotics) sumatriptan [Imitrex] Allergy Unknown Unknown Verified 03/04/21 13:40 azithromycin Allergy Unknown Verified 03/04/21 13:40 gabapentin Allergy Unknown Verified 03/04/21 13:40 sulfamethoxazole Allergy Unknown Verified 03/04/21 13:40 [From Bactrim] trimethoprim [From Bactrim] Allergy Unknown Verified 03/04/21 13:40 [place] Allergy Unknown Unknown Uncoded 03/04/21 13:40 Codeine Sulfate Allergy Unknown Unknown Uncoded 03/04/21 13:40 Imitrex Allergy Unknown Unknown Uncoded 03/04/21 13:40 Penicillin Allergy Unknown Unknown Uncoded 03/04/21 13:40 Vibramycin Allergy Unknown Unknown Uncoded 03/04/21 13:40 Victyl Structures Allergy Unknown Unknown Uncoded 03/04/21 13:40 Xray Dye Allergy Unknown Unknown Uncoded 03/04/21 13:40 Physical Exam Vital signs: Vital Signs Temp 98.0 F 03/04/21 13:06 Pulse 73 03/04/21 13:06 Resp 12 03/04/21 13:06 BP 114/69 03/04/21 13:06 Pulse Ox 98 03/04/21 13:06 Intake & Output 03/03/21 03/04/21 03/04/21 18:59 06:59 18:59 Other: Weight 54.5 kg Weight in Grams 44890 Weight 54.5 kg - Constitutional Present: no acute distress - Routine HEENT Exam Head: Present: normal inspection ENT: Present: mucous membranes moist - Routine Neck Exam Present: supple - Routine Respiratory Exam Present: CTAB - Routine Cardiovascular Exam Cardiovascular: Present: S1, S2 - Routine Abdominal Exam Present: normal bowel sounds, nontender - Routine Extremities Exam Present: nontender - Routine Back/Spine/Pelvis Exam Back/Spine: Present: full ROM - Routine Skin Exam Present: intact - Routine Neurological Exam Present: alert, oriented X3 - Detailed Neurological Exam: Coma Scale Eye Opening: Spontaneous (4) Verbal Response: Oriented (5) Motor Response: Obeys commands (6) Rebecca Coma Scale Total: 15 - Routine Psychiatric Exam Present: normal affect Hem/Onc Consult Result - Labs CBC & Chem 7: 03/04/21 13:55 03/04/21 13:55 Assessment and Plan (1) Osteoporosis Status: Acute This is a pleasant 55-year-old lady with a history of MS and osteoporosis. She has not had Reclast for about 8 years now. She is overdue. PLAN: We are trying to determine if she already has had prior Autherization done by her primary care office. If that is the case we can schedule it, for next week. Meantime her baseline labs were done and they are normal, including the kidney function. She will be followed up by the endocrine office for the Reclast in future. Thank you, CC: . Addendum: Patient returned and received a Reclast the following week after the prior authorization was completed.
[2021-03-04 13:59] LABS: MANUAL DIFF FLAG NO
[2021-03-04 14:05] LABS: Basophils Percent Auto 0.4 % (0-2); Eosinophils Percent Auto 0.6 % (0-4); Hematocrit 41.6 % (37-47); Hemoglobin 13.3 g/dl (12.0-16.0); Imm Gran Abs Auto 0.02 X10*3/uL (0.00-0.03); Imm Gran Pct Auto 0.4 % (0.0-0.4); Lymphocytes Absolute Auto 1.8 X10*3/uL (1.2-4.9); Lymphocytes Percent Auto 33.4 % (20-40); Mean Corpuscular Volume 93.7 fL (80-98); Mean Platelet Volume 11.2 fL (9.4-12.3); Monocytes Absolute Auto 0.5 X10*3/uL (0.1-1.2); Monocytes Percent Auto 9.7 % (2-11); Neutrophils Percent Auto 55.5 % (45-73); Platelet Count 174 X10*3/uL (160-400); Red Blood Count 4.44 X10*6/uL (4.20-5.50); Red Cell Distribution Width 13.2 % (11.0-16.0); White Blood Count 5.4 X10*3/uL (4.8-10.8)
--- NOTE | 2021-03-04 14:31 | MHC.HEMONCMA ---
Pt presents for consult for osteoporosis. History reviewed and labs drawn.
[2021-03-04 14:33] LABS: Alanine Aminotransferase 14 U/L (0-31); Albumin Level 4.5 g/dL (3.5-5.0); Alkaline Phosphatase 63 U/L (39-117); Anion Gap 11 (12-20); Aspartate Amino Transferase 15 U/L (5-31); Bilirubin Total 0.2 mg/dL (0.0-1.0); Blood Urea Nitrogen 14 mg/dL (9-16); Calcium 8.9 mg/dL (8.4-10.2); Carbon Dioxide 25 mmol/L (22-29); Chloride 110 mmol/L (96-108); Creatinine Clr Calc Pharmacy 48.6; Estimated Glomerular Filt Rate > 60; Glucose Random 83 mg/dL (60-115); Potassium 3.9 mmol/L (3.3-5.1); Sodium 142 mmol/L (135-145); Total Protein 6.8 g/dL (6.5-8.0)
[2021-03-04 14:53] LABS: Vitamin D 25-OH Total 47.7 ng/mL (>30)
[2021-03-10 09:00] VITALS: BP 118/64; PULSE 68; RESP 18; TEMP 36.3; O2SAT 98; BMI 23.0
--- NOTE | 2021-03-10 09:11 | HO.HEMONCPA ---
JENNYFER request for Reclast (zoledronic acid) injection APPROVED. Auth#[id number] 03/08/2021-07/08/2021. Approval letter scanned into chart.
[2021-03-10] MEDS: Zoledronic Acid/Mannitol-Water 5 MG/100 ML PGGYBK.BTL 400 MG IV (09:26)
--- NOTE | 2021-03-10 09:50 | MHC.HEMONC ---
Addendum entered by Mamie Doll RN 03/10/21 09:52: Reclast is yearly. Original Note: Pt here for IV Reclast. IV started by coworker. Labs done at last visit. IV Reclast hung per orders. IV infusion completed. IV removed and site asymptomatic. Per Dr Maki report pt to follow-up with Endocrinology for Reclast.
== END | disposition home or self-care (01) ==
LOC: HO.ONC 03-04 12:55
PROVIDERS: PCP Family Medicine; Referring Provider Family Medicine; Visit Provider Internal Medicine Medical Oncology
DX: M81.0 Age-related osteoporosis without current pathological fracture (principal); G35 Multiple sclerosis
CPT/HCPCS: 36415; 80053; 82306; 85025; 96375; 99204; J3489